=== PATIENT | male | born 1985 | race Native Hawaiian/Other Pacific Islander ===

== ENCOUNTER 2016-12-28 19:53 | Emergency (ER) | payer SELFPAY ==
[2016-12-28] MEDS ORDERED: IPRATROPIUM/ALBUTEROL SULFATE 3 ML AMPUL.NEB NEB ONE (20:06)
[2016-12-28] MEDS ORDERED: BUDESONIDE 0.5MG/2ML AMPUL.NEB NEB ONE (20:13)
[2016-12-28] MEDS ORDERED: ALBUTEROL SULFATE 2.5 MG/3 ML AMPUL.NEB NEB ONE ×2 (20:44→20:55)
[2016-12-28] MEDS ORDERED: SODIUM CHLORIDE 3 ML VIAL.NEB IH ONE (20:44)
[2016-12-28] MEDS ORDERED: BUDESONIDE 0.5MG/2ML AMPUL.NEB NEB SCH (21:00)
[2016-12-28 21:23] LABS: eGFR (African) > 60; eGFR (Non-African) > 60
[2016-12-28 21:26] LABS: BASOPHILS % 0.5 (0.0-1.5); EOSINOPHILS % 15.2 % (0.0-6.8); NEUTROPHILS # 7.2 # k/uL (1.4-7.7)
[2016-12-28] MEDS ORDERED: cefTRIAXone SODIUM ADVANTAGE 1 GM in NORMAL SALINE ADD-VANTAGE 50 ML IV ONE (21:41)
[2016-12-28] MEDS ORDERED: 0.9 % SODIUM CHLORIDE 100 ML IV ONE (21:50)
[2016-12-28] MEDS ORDERED: cefTRIAXone SODIUM 1 GM VIAL ONE (21:50)
--- NOTE | 2016-12-28 21:54 | ED Physician Documentation ---
General Adult - HISTORIAN Historian: patient - HPI Stated Complaint: Difficulty Breathing Chief Complaint: General Adult Additional Information: Wheezing for a week since he moved to [place] from [place]. Duonebs 4-6 times/day , and down to 80 mg prednisone/day fro m110 (for lupus). Intubations 29 times in the past, once o nvent for 3 weeks followed by emergency cric at extubation. Has IVC filter and on coumadin 6.5 mg/day (2/2 lupus) with HX 2 PE's. Steroid dependent, on prednisone since 2007. Cough productive of light green mucus. "Fever" of 99. - ROS CONST: no problems - PAST HX Past History: renal disease (Has been on dialysis i npast.) Other History: other (see above) Surgeries/Procedures: other (see above) Allergies/Adverse Reactions: Allergies Allergy/AdvReac Type Severity Reaction Status Date / Time acetaminophen [From Tylenol] Allergy Verified 12/28/16 20:01 NSAIDS (Non-Steroidal Allergy Verified 12/28/16 20:01 Anti-Inflamma vancomycin Allergy Verified 12/28/16 20:01 Home Medications: Ambulatory Orders Medication Instructions Recorded Albuterol Sulfate [Ventolin] 2.5 mg NEB Q4 12/28/16 Clindamycin HCl [Cleocin] 300 mg PO QID 12/28/16 Warfarin Sodium [Warfarin Sodium] 5 mg PO DAILY 12/28/16 predniSONE [Deltasone] 80 mg PO QD 12/28/16 - SOCIAL HX Smoking History: other (marijuana) Drug Use: marijuana - FAMILY HX Family History: No (no signif) - VITAL SIGNS Vital Signs: Vital Signs Temp Pulse Resp BP Pulse Ox 108 H 30 H 139/83 92 12/28/16 19:55 12/28/16 19:55 12/28/16 19:55 12/28/16 19:55 - REVIEWED ASSESSMENTS Nursing Assessment Reviewed: Yes Vitals Reviewed: Yes Progress - Progress Progress: Examination: PA and lateral chest. History: Shortness of breath Findings: PA lateral chest demonstrate a normal cardiac and mediastinal silhouette. Mild left hilar haziness. No effusion. No blunting of the costophrenic margins. Osseous structures are appropriate for age. Impression: Mild left hilar haziness - possibly representing early infiltrate. Follow as warranted to document resolution. Electronically signed on Dec 28, 2016 8:59:35 PM CDT by: Byron Ya 2140, Spoke with Dr. Renner, [facility], who thinks pt should be in MICU. 2142, spoke with Dr. Lira, who accepts pt for transfer to [facility] MICU ED Results Lab/Radiology - Orders Orders: ED Orders Category Date Time Status Place IV Lock 1T Care 12/28/16 20:37 Ordered CHEST 2 VIEW [CHEST P.A.&LAT 2 VIEWS] [RAD] Stat Exams 12/28/16 Ordered CBC/PLATELET/DIFF Routine Lab 12/28/16 Ordered CMP Routine Lab 12/28/16 Ordered PT-INR Routine Lab 12/28/16 Ordered URINALYSIS Routine Lab 12/28/16 Ordered Budesonide [Pulmicort] Med 12/28/16 21:00 Ordered 0.5 mg NEB BID Ipratropium/Albuterol Sulfate [Duoneb] Med 12/28/16 20:06 Discontinued 3 ml NEB NOW ONE General Adult Physical Exam - PHYSICAL EXAM GENERAL APPEARANCE: moderate distress (unable to speak more than 1-2 words at a time in hoarse voice on arrival.) EENT: eye inspection normal, pharynx normal NECK: normal inspection, supple RESPIRATORY: breath sounds normal (decreased), wheezes, other (speaks iin raspy voice, 1-2 words at a time, tachypneic at 30, supraclavicular retractiosn at times) CVS: reg rate & rhythm, no murmur RECTAL: deferred BACK: normal inspection, no CVA tenderness SKIN: warm/dry, normal color EXTREMITIES: no evidence of injury NEURO: CN's nml as tested, motor nml, sensation nml, cognition normal Discharge Clincal Impression: Respiratory distress, Asthma Referrals: Primary Doctor,No [Primary Care Provider] - 2 Days Home Medications: Ambulatory Orders Albuterol Sulfate [Ventolin] 2.5 mg NEB Q4 12/28/16 Clindamycin HCl [Cleocin] 300 mg PO QID 12/28/16 Warfarin Sodium [Warfarin Sodium] 5 mg PO DAILY 12/28/16 predniSONE [Deltasone] 80 mg PO QD 12/28/16 Condition: Fair Disposition: 02 XFER SHT-TRM HOSP Decision to Admit: NO Decision Time: 21:43
[2016-12-28 22:16] VITALS: BP 138/68
--- NOTE | 2016-12-28 23:29 | Diagnostic Imaging Report ---
JUSTYN WALKER~ [facility] [address] [facility] [address] [place] [address]. [id number] ~ ~ ~ ~ Report Submission Date: Dec 28, 2016 8:59:35 PM CDT Patient ~ Study Name: EDMUNDO PATTERSON ~ Date: Dec 28, 2016 8:41:31 PM CDT ~ Modality Type: CR Gender: M ~ Description: CHEST : 86 ~ Institution: [facility] Physician: JUSTYN WALKER ~ ~ ~ ~ Examination: PA and lateral chest. History: Shortness of breath Findings: PA lateral chest demonstrate a normal cardiac and mediastinal silhouette. Mild left hilar haziness. No effusion.~ No blunting of the costophrenic margins.~ Osseous structures are appropriate for age. Impression: Mild left hilar haziness - possibly representing early infiltrate. Follow as warranted to document resolution. ~ Electronically signed on Dec 28, 2016 8:59:35 PM CDT by: Byrno CORNOA
[2016-12-29 06:30] LABS: ABG PH 7.43 (7.35-7.45)
[2016-12-29 08:46] LABS: ANISOCYTOSIS 2+ (NEGATIVE); HYPOCHROMASIA 1+ (NEGATIVE); OVALOCYTES 1+ (NEGATIVE)
== END 2016-12-28 22:15 | disposition short-term general hospital (02) ==
LOC: ED 19:53
DX: J45.901 Unspecified asthma with (acute) exacerbation (principal); R06.02 Shortness of breath
CPT/HCPCS: 36600; 71020; 80053; 82803; 85025; 85610; 87040; J0696; J7626; 96360; 99284

== ENCOUNTER 2017-01-01 20:53 | Inpatient (IN) | payer SELFPAY ==
[2017-01-01] MEDS ORDERED: ONDANSETRON HCL 4 MG TAB.RAPDIS ONE (21:05)
[2017-01-01] MEDS ORDERED: ONDANSETRON HCL 4 MG TAB.RAPDIS PO ONE (21:05)
[2017-01-01] MEDS ORDERED: oxyCODONE/ACETAMINOPHEN 5/325 TABLET PO ONE (22:18)
[2017-01-01] MEDS ORDERED: HYDROmorphone HCL/PF 1 MG/ML DISP.SYRIN ONE (22:21)
[2017-01-01 23:10] LABS: EOSINOPHILS % 17.7 % (0.0-6.8); MEAN CORPUSCULAR VOLUME 66.9 fl (80.0-100.0); MONOCYTES % 7.1 % (0.0-11.0); NEUTROPHILS # 5.9 # k/uL (1.4-7.7)
[2017-01-01 23:15] LABS: eGFR (African) > 60; eGFR (Non-African) > 60
[2017-01-02] MEDS ORDERED: HYDROmorphone HCL/PF 1 MG/ML DISP.SYRIN IVP ONE (00:40)
[2017-01-02] MEDS ORDERED: diphenhydrAMINE HCL 25 MG TABLET PO ONE ×2 (01:20→01:30)
[2017-01-02] MEDS ORDERED: VANCOMYCIN HCL 1 GM VIAL IV ONE (01:47)
[2017-01-02] MEDS ORDERED: 0.9 % SODIUM CHLORIDE 250 ML IV ONE (01:48)
[2017-01-02] MEDS ORDERED: VANCOMYCIN HCL 1.25 GM in 0.9 % SODIUM CHLORIDE 250 ML IV SCH (02:00)
[2017-01-02 02:17] VITALS: BP 139/85
[2017-01-02] MEDS ORDERED: HYDROmorphone HCL 2 MG TABLET PO ONE ×3 (02:22→10:49)
[2017-01-02] MEDS: HYDROmorphone HCL 2 MG TABLET PO PRN ×3 (02:26→10:51)
[2017-01-02 02:59] VITALS: BMI 23.6
[2017-01-02] MEDS ORDERED: ZOLPIDEM TARTRATE 5 MG TABLET PO PRN (03:26)
[2017-01-02] MEDS ORDERED: ZOLPIDEM TARTRATE 5 MG TABLET PO ONE (03:28)
[2017-01-02] MEDS ORDERED: TIOTROPIUM BROMIDE INHALER IH ONE (04:51)
[2017-01-02] MEDS ORDERED: FLUTICASONE/SALMETEROL 250-50 INHALER IH ONE (04:52)
[2017-01-02] MEDS ORDERED: MONTELUKAST SODIUM 10 MG TABLET PO ONE (04:52)
[2017-01-02] MEDS ORDERED: predniSONE 20 MG TABLET PO ONE (04:52)
[2017-01-02] MEDS ORDERED: WARFARIN SODIUM 5 MG TABLET PO ONE (04:52)
--- NOTE | 2017-01-02 05:01 | ED Physician Documentation ---
General Adult - HISTORIAN Historian: patient - HPI Stated Complaint: rash/swelling of arms s/p iv tx Chief Complaint: General Adult Onset: hours Timing: still present Severity: moderate Further Comments: yes (Pt is a 31 yo male with c/o cellulitis of b/l upper extremities after IV tx at [facility] for asthma exacerbation. Pt has a lengthy PMHx including Lupus, asthma/COPD/bronchitis with 29 intubations. Pt has IVC filter and is on coumadin and has hx PE's. Pt takes daily steroids and has renal disease and has been on dialysis in the past. Pt has no breathing issues at this visit, only pain, swelling and erythema of upper extremities. No fever. ) - ROS CONST: no problems EYES/ENT: none CVS/RESP: none GI/: nausea MS/SKIN/LYMPH: other (inflammation of upper extermities s/p IV tx.) - PAST HX Past History: other (Lupus, asthma/COPD/bronchitis with 29 intubations; renal dz , once on dialysis; RA.) Allergies/Adverse Reactions: Allergies Allergy/AdvReac Type Severity Reaction Status Date / Time acetaminophen [From Tylenol] Allergy Verified 01/01/17 22:58 NSAIDS (Non-Steroidal Allergy Verified 01/01/17 22:58 Anti-Inflamma Home Medications: Ambulatory Orders Medication Instructions Recorded Albuterol Sulfate [Ventolin] 2.5 mg NEB Q4 12/28/16 Warfarin Sodium [Warfarin Sodium] 5 mg PO DAILY 12/28/16 predniSONE [Deltasone] 80 mg PO QD 12/28/16 Alendronate Sodium [Fosamax] 70 mg PO WEEK 01/02/17 Budesonide/Formoterol Fumarate 1 inh PO QDAY 01/02/17 [Symbicort 160-4.5 Mcg Inhaler] Cetirizine HCl [Zyrtec] 10 mg PO QDAY 01/02/17 HYDROmorphone HCL [Dilaudid] 2 mg PO Q4 01/02/17 Montelukast Sodium [Singulair] 10 mg PO QDAY 01/02/17 Theophylline Anhydrous 300 mg PO BID 01/02/17 [Theophylline] Tiotropium [place] [Spiriva] 1 inh IH QD 01/02/17 - SOCIAL HX Smoking History: cigarettes (occasional) - FAMILY HX Family History: No (No signif) - VITAL SIGNS Vital Signs: Vital Signs Temp Pulse Resp BP Pulse Ox 138/68 12/28/16 22:15 - REVIEWED ASSESSMENTS Nursing Assessment Reviewed: Yes Vitals Reviewed: Yes Progress - Progress Progress: Zofran 4 mg ODT Dilaudid 1 mg IV x 2 Pt states that he is not allergic to Vancomycin, as previously recorded. Admit to Dr. Kat, cellulitis. General Adult Physical Exam - PHYSICAL EXAM GENERAL APPEARANCE: mild distress EENT: eye inspection normal, pharynx normal NECK: normal inspection, supple RESPIRATORY: no resp distress, chest non-tender, breath sounds normal CVS: reg rate & rhythm, heart sounds normal BACK: normal inspection SKIN: other (tenderness, swelling, erythema of b/l upper extremities L > R, affectin L hand, wrist, forearm; R upper arm.) EXTREMITIES: normal range of motion NEURO: oriented X3, motor nml, sensation nml Discharge Clincal Impression: Cellulitis Qualifiers: Site of cellulitis: extremity Site of cellulitis of extremity: upper extremity Laterality: unspecified laterality Qualified Code(s): L03.119 - Cellulitis of unspecified part of limb Home Medications: Ambulatory Orders Albuterol Sulfate [Ventolin] 2.5 mg NEB Q4 12/28/16 Warfarin Sodium [Warfarin Sodium] 5 mg PO DAILY 12/28/16 predniSONE [Deltasone] 80 mg PO QD 12/28/16 Alendronate Sodium [Fosamax] 70 mg PO WEEK 01/02/17 Budesonide/Formoterol Fumarate [Symbicort 160-4.5 Mcg Inhaler] 1 inh PO QDAY Cetirizine HCl [Zyrtec] 10 mg PO QDAY 01/02/17 HYDROmorphone HCL [Dilaudid] 2 mg PO Q4 01/02/17 Montelukast Sodium [Singulair] 10 mg PO QDAY 01/02/17 Theophylline Anhydrous [Theophylline] 300 mg PO BID 01/02/17 Tiotropium [place] [Spiriva] 1 inh IH QD 01/02/17 Condition: Stable Disposition: ADMITTED INPATIENT Decision to Admit: NO Decision Time: 00:58
[2017-01-02 06:29] LABS: ANISOCYTOSIS 1+ (NEGATIVE); BASOPHILS % 0.7 (0.0-1.5)
[2017-01-02] MEDS ORDERED: predniSONE 20 MG TABLET PO SCH (07:00)
[2017-01-02] MEDS ORDERED: TIOTROPIUM BROMIDE INHALER IH SCH (07:00)
[2017-01-02] MEDS ORDERED: LORATADINE/PSEUDOEPHEDRINE 1 EACH TAB.ER.12H ONE (08:56)
[2017-01-02] MEDS ORDERED: MONTELUKAST SODIUM 10 MG TABLET PO SCH (09:00)
[2017-01-02] MEDS ORDERED: WARFARIN SODIUM 5 MG TABLET PO SCH (09:00)
[2017-01-02] MEDS ORDERED: LORATADINE/PSEUDOEPHEDRINE 1 EACH TAB.ER.12H PO SCH (09:00)
[2017-01-02] MEDS ORDERED: ALBUTEROL SULFATE 2.5 MG/3 ML AMPUL.NEB NEB SCH (09:00)
[2017-01-02] MEDS ORDERED: FLUTICASONE/SALMETEROL 250-50 INHALER IH SCH (09:00)
--- NOTE | 2017-01-02 13:33 | History and Physical Report ---
History of Present Illnes - History of Present Illness Reason for Visit: Swollen arms History of Present Illness: Patient presented to our ER with swollen arms. He was admitted to [facility] 12-28-16 - 12-31-16 (when he snuck out of the hospital) to the MICU with asthma exacerbation. Ended up being treated for CAP with levaquin. PE work up was negative. For 2 days he has been having swollen painful red B arms. He has a complex medical history. He moved here from [place] in early December with family. No insurance. [facility] [place] has set him up to see [facility] in [place] to get discounted care and medications. [facility] [place] also agreed to work with him with all his medical issues to get him the specialist care he needs. He reports that won't help him because he can't get to [place]. While in our ER 12-28-16 the only line access was in his pinkie. He told nursing he would like to get fpc access that he "would not abuse." He ended up pulling out the IV. On this admission the only IV access obtained was in his alicia. Once on the floor, he has also pulled that out. 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 negative: Neck Pain Skin: Rash Neurological: negative: Weakness - Medications/Allergies Allergies/Adverse Reactions: Allergies Allergy/AdvReac Type Severity Reaction Status Date / Time acetaminophen [From Tylenol] Allergy Verified 01/01/17 22:58 NSAIDS (Non-Steroidal Allergy Verified 01/01/17 22:58 Anti-Inflamma Home Medications: Home Medications Alendronate Sodium [Fosamax] 70 mg PO WEEK 01/02/17 Budesonide/Formoterol Fumarate [Symbicort 160-4.5 Mcg Inhaler] 1 inh PO QDAY Cetirizine HCl [Zyrtec] 10 mg PO QDAY 01/02/17 HYDROmorphone HCL [Dilaudid] 2 mg PO Q4 01/02/17 Montelukast Sodium [Singulair] 10 mg PO QDAY 01/02/17 Theophylline Anhydrous [Theophylline] 300 mg PO BID 01/02/17 Tiotropium [place] [Spiriva] 1 inh IH QD 01/02/17 Current Inpatient Medications: Current Inpatient Medications Albuterol Sulfate (Ventolin) 2.5 mg NEB Q4 [facility] Hydromorphone HCl (Dilaudid) 2 mg PO Q4H PRN PRN Reason: PAIN Stop: 01/06/17 23:59 Last Admin: 01/02/17 06:33 Dose: 2 mg Vancomycin HCl 1.25 gm/ Sodium (Chloride) 250 mls @ 250 mls/hr IV QD [facility] Last Admin: 01/02/17 01:47 Dose: 250 mls/hr Loratadine/Pseudoephedrine Sulfate (Claritin-D 12 Hour Tablet) 1 each PO DAILY [facility] Stop: 01/07/17 23:59 Last Admin: 01/02/17 09:00 Dose: 1 each Montelukast Sodium (Singulair) 10 mg PO QDAY [facility] Last Admin: 01/02/17 09:01 Dose: 10 mg Prednisone (Deltasone) 80 mg PO QD [facility] Last Admin: 01/02/17 06:33 Dose: 80 mg Fluticasone/Salmeterol (Advair 250-50 Diskus) 1 each IH DAILY [facility] Stop: 01/07/17 23:59 Last Admin: 01/02/17 09:05 Dose: 1 inh Tiotropium [place] (Spiriva) 1 inh IH QD [facility] Last Admin: 01/02/17 06:37 Dose: 1 inhaler Warfarin Sodium (Coumadin) 5 mg PO DAILY [facility] Last Admin: 01/02/17 09:01 Dose: 5 mg Zolpidem Tartrate (Ambien) 5 mg PO HS PRN PRN Reason: Insomnia Last Admin: 01/02/17 03:31 Dose: 5 mg Exam - Exam Vital Signs: Vital Signs (72 hours) 01/02/17 01/02/17 02:00 02:13 Temperature 97.9 F 96.8 F L Pulse Rate [ 82 82 Right Pulse ox] Respiratory 16 16 Rate Blood Pressure 134/88 139/85 [Right Arm] O2 Sat by Pulse 98 100 Oximetry General: Alert, Oriented to Person, Oriented to Place, Oriented to Time, Cooperative, No acute distress HEENT: Atraumatic, PERRLA, EOMI, Mouth Mucous membr. moist/[place] Neck: Normal Range of Motion Lungs: Clear to auscultation, Normal air movement, Speaks full Sentences Cardiovascular: Regular rate Abdomen: Normal bowel sounds, Soft, No tenderness Integumentary: Cellulitis (L forearm and R upper arm - swollen, erythematous, painful, warm) Extremities: No: No edema Neurological: Normal gait, Normal speech, Strength Equal Bilat Psych/Mental Status: Mental status NL, Mood NL, Appropriate Affect, Intact Judgment Assessment/Plan - Assessment/Plan (1) Lupus Status: Chronic Qualifiers: Systemic lupus erythematosus type: unspecified Systemic lupus erythematosus organ involvement: glomerular disease Qualified Code(s): M32.14 - Glomerular disease in systemic lupus erythematosus (2) Cellulitis Status: Acute Qualifiers: Site of cellulitis: extremity Site of cellulitis of extremity: upper extremity Laterality: unspecified laterality Qualified Code(s): L03.119 - Cellulitis of unspecified part of limb Plan: Secondary to IV sites. Will need vancomycin treatment with pharmacy dosing. Elevate frequently. Consider U/S (3) Asthma Status: Chronic Qualifiers: Asthma severity: mild persistent Asthma complication type: uncomplicated Qualified Code(s): J45.30 - Mild persistent asthma, uncomplicated VTE Assessment - RISK FACTOR SCORE VTE RISK FACTOR SCORES: ACUTE INFECTION OTHER THEN SEPSIS, DOCUMENTED HX OF VTE - RISK VTE MODERATE RISK: SCORE OF 2 (RISK PROXIMAL DVT 2-4%) PROPHYAXIS NEEDED
--- NOTE | 2017-01-02 13:37 | Discharge Summary ---
Discharge Summary - Discharge Sumary History of Present Illness: Patient presented to our ER with swollen arms. He was admitted to [facility] 12-28-16 - 12-31-16 (when he snuck out of the hospital) to the MICU with asthma exacerbation. Ended up being treated for CAP with levaquin. PE work up was negative. For 2 days he has been having swollen painful red B arms. He has a complex medical history. He moved here from [place] in early December with family. No insurance. [facility] [employer] has set him up to see [facility] in [place] to get discounted care and medications. [facility] [place] also agreed to work with him with all his medical issues to get him the specialist care he needs. He reports that won't help him because he can't get to [place]. While in our ER 12-28-16 the only line access was in his pinkie. He told nursing he would like to get prison access that he "would not abuse." He ended up pulling out the IV. On this admission the only IV access obtained was in his alicia. Once on the floor, he has also pulled that out. 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 Condition at Discharge: Stable Home Medications: Ambulatory Orders Medication Instructions Recorded Albuterol Sulfate [Ventolin HFN] 2.5 mg NEB Q4 12/28/16 Warfarin Sodium 5 mg PO DAILY 12/28/16 predniSONE [Deltasone] 80 mg PO QD 12/28/16 Alendronate Sodium [Fosamax] 70 mg PO WEEK 01/02/17 Budesonide/Formoterol Fumarate 1 inh PO QDAY 01/02/17 [Symbicort 160-4.5 Mcg Inhaler] Cetirizine HCl [Zyrtec] 10 mg PO QDAY 01/02/17 HYDROmorphone HCL [Dilaudid] 2 mg PO Q4 01/02/17 Montelukast Sodium [Singulair] 10 mg PO QDAY 01/02/17 Theophylline Anhydrous 300 mg PO BID 01/02/17 [Theophylline] Tiotropium [place] [Spiriva] 1 inh IH QD 01/02/17 Consultations this Visit: None Procedures this Visit: None Allergies/Adverse Reactions: Allergies Allergy/AdvReac Type Severity Reaction Status Date / Time acetaminophen [From Tylenol] Allergy Verified 01/01/17 22:58 NSAIDS (Non-Steroidal Allergy Verified 01/01/17 22:58 Anti-Inflamma Discharge Summary: Patient was admitted for IV vancomycin for cellulitis from hospitalization last week from IV sites after being on IV levaquin. Patient has immocompromised system due to chronic steroids and Lupus. Only one IV site could be obtained and that was in his alicia. This IV site was lost after admission. A new site could not be obtained. Patient was transferred back to [facility] for treatment - including IV access, ID consult. Advised social service consult to get patient on Medicaid. Transferred in stable condition. Hospital Course: Discharge Dx: B UE cellulitis. Lupus. Asthma. h/o DVT. Disposition - Discharge to [facility]
== END 2017-01-02 11:20 | disposition short-term general hospital (02) | DRG 603 ==
LOC: ED 20:53 → SOUTH 01-02 01:49
PROVIDERS: ADMIT Family Medicine; ATTEND Family Medicine
DX: L03.114 Cellulitis of left upper limb (principal); L03.113 Cellulitis of right upper limb; M32.9 Systemic lupus erythematosus, unspecified; J45.909 Unspecified asthma, uncomplicated
CPT/HCPCS: 80053; 85025; A9270; J1170; 99223; 99238; 99284; J3370; J7050; Q0163; S1016

== ENCOUNTER 2017-01-09 08:21 | Emergency (ER) | payer SELFPAY ==
[2017-01-09] MEDS ORDERED: ALBUTEROL SULFATE 2.5 MG/3 ML AMPUL.NEB NEB ONE (08:24)
[2017-01-09] MEDS ORDERED: BUDESONIDE 0.5MG/2ML AMPUL.NEB NEB ONE (08:35)
[2017-01-09] MEDS: methylPREDNISolone SOD SUCC 125 MG/2 ML VIAL IVP ONE (09:00)
[2017-01-09] MEDS: IPRATROPIUM/ALBUTEROL SULFATE 3 ML AMPUL.NEB NEB ONE ×3 (09:04→10:35)
[2017-01-09] MEDS: ALBUTEROL SULFATE 2.5 MG/3 ML AMPUL.NEB NEB ONE (09:10)
[2017-01-09] MEDS ORDERED: MAGNESIUM SULFATE/D5W 200 ML IV ONE (09:11)
[2017-01-09] MEDS: BUDESONIDE 0.5MG/2ML AMPUL.NEB NEB ONE (09:21)
[2017-01-09 09:26] LABS: eGFR (African) > 60; eGFR (Non-African) > 60
[2017-01-09 09:30] LABS: MEAN CORPUSCULAR HEMOGLOBIN 18.7 pg (28.0-34.0); MEAN CORPUSCULAR VOLUME 65.8 fl (80.0-100.0)
[2017-01-09] MEDS ORDERED: diphenhydrAMINE HCL 50 MG/ML VIAL ONE (09:30)
[2017-01-09] MEDS: diphenhydrAMINE HCL 50 MG/ML VIAL IVP ONE ×2 (09:38→10:25)
--- NOTE | 2017-01-09 09:38 | Diagnostic Imaging Report ---
[facility] [address] [facility].[address] [address] Report Submission Date: Jan 09, 2017 9:36:01 AM CDT Patient Study Name: EDMUNDO PATTERSON Date: Jan 09, 2017 9:15:27 AM CDT Modality Type: CR Gender: M Description: CHEST : 87 Institution: [facility] Physician: CARA ORR - ER Examination: PA and lateral chest. History: Evaluate lung apple. Comparison exam: 28 December 2016 Findings: PA lateral chest demonstrate a normal cardiac and mediastinal silhouette. No focal infiltrate. No effusion. No blunting of the costophrenic margins. Osseous structures are appropriate for age. Impression: No acute process. Electronically signed on Jan 09, 2017 9:36:01 AM CDT by: Byron CORONA
[2017-01-09] MEDS: MAGNESIUM SULFATE/D5W 1 GM in PREMIX BAG 1 BAG IV ONE ×2 (09:40→10:30)
[2017-01-09] MEDS ORDERED: LORATADINE 10 MG TABLET PO ONE (10:12)
[2017-01-09] MEDS: LORATADINE 10 MG TABLET PO ONE (10:18)
[2017-01-09] MEDS: HEPARIN SODIUM 5000 UNIT/1 ML IV ONE (10:45)
--- NOTE | 2017-01-09 10:46 | ED Physician Documentation ---
Dyspnea - HISTORIAN Historian: patient - HPI Stated Complaint: asthma attack Chief Complaint: Dyspnea Additional Information: prog dyspnea past 4-5 days pmh asthma copd intubated 29 x and crich x 1. here w/ chest congestion cough occ prod clear mucoid. sleerps sitting up past several nocts no khalida fever Duration: continues in ED, worse Initiating Event: upper respiratory illness (moved here from [place] no intubation since) Severity: moderate Exacerbated By: exertion, coughing Associated Symptoms: chest discomfort, productive cough, other (skin rash) - ROS CONST: no problems EYES/ENT: none GI/: none MS/SKIN/LYMPH: rash - PAST HX Lung Disease: asthma, COPD PE Risk Factors: hx of PE (lt arm--also PE - wears stent w.filter) Surgeries/Procedures: prior intubation (x 29 plus 1 crich) Allergies/Adverse Reactions: Allergies Allergy/AdvReac Type Severity Reaction Status Date / Time acetaminophen [From Tylenol] Allergy Verified 01/01/17 22:58 NSAIDS (Non-Steroidal Allergy Verified 01/01/17 22:58 Anti-Inflamma Home Medications: Ambulatory Orders Medication Instructions Recorded Albuterol Sulfate [Ventolin HFN] 2.5 mg NEB Q4 12/28/16 Warfarin Sodium 5 mg PO DAILY 12/28/16 predniSONE [Deltasone] 80 mg PO QD 12/28/16 Alendronate Sodium [Fosamax] 70 mg PO WEEK 01/02/17 Budesonide/Formoterol Fumarate 1 inh PO QDAY 01/02/17 [Symbicort 160-4.5 Mcg Inhaler] Cetirizine HCl [Zyrtec] 10 mg PO QDAY 01/02/17 HYDROmorphone HCL [Dilaudid] 2 mg PO Q4 01/02/17 Montelukast Sodium [Singulair] 10 mg PO QDAY 01/02/17 Theophylline Anhydrous 300 mg PO BID 01/02/17 [Theophylline] Tiotropium [place] [Spiriva] 1 inh IH QD 01/02/17 - SOCIAL HX Smoking History: non-smoker (x 1 yr) Alcohol Use: none Drug Use: marijuana - FAMILY HX Family History: no significant history - VITAL SIGNS Vital Signs: Vital Signs Temp Pulse Resp BP Pulse Ox 98.7 F 103 H 32 H 130/82 92 01/09/17 08:32 01/09/17 08:32 01/09/17 08:32 01/09/17 08:32 01/09/17 08:32 - REVIEWED ASSESSMENTS Nursing Assessment Reviewed: Yes Vitals Reviewed: Yes ED Results Lab/Radiology - Radiology Radiology Impressions: cxr= no sig acute condition - Orders Orders: ED Orders Category Date Time Status Assess pulse oximetry Q1H Care 01/09/17 08:27 Active CHEST P.A.&LAT 2 VIEWS [RAD] Stat Exams 01/09/17 Ordered ARTERIAL BLOOD GAS Stat Lab 01/09/17 Uncollected CBC/PLATELET/DIFF Routine Lab 01/09/17 09:00 Received CMP Routine Lab 01/09/17 09:00 Received Albuterol Sulfate [Ventolin] Med 01/09/17 08:24 Discontinued 2.5 mg NEB .STK-MED ONE Albuterol Sulfate [Ventolin] Med 01/09/17 08:27 Discontinued 2.5 mg NEB NOW ONE Budesonide [Pulmicort] Med 01/09/17 08:35 Discontinued 0.5 mg NEB .STK-MED ONE Ipratropium/Albuterol Sulfate [Duoneb] Med 01/09/17 08:43 Discontinued 3 ml NEB NOW ONE Ipratropium/Albuterol Sulfate [Duoneb] Med 01/09/17 09:06 Once 3 ml NEB NOW ONE methylPREDNISolone SOD SUCC [Solu-MEDROL] Med 01/09/17 08:50 Discontinued 125 mg IVP NOW ONE Oxygen Daily Oxygen 01/09/17 08:30 Ordered EKG WITH COMPARISON Stat Ther 01/09/17 Ordered Dyspnea Physical Exam - EXAM General Appearance: moderate distress, severe distress EENT: eye inspection normal Neck: nml inspection Respiratory: respiratory distress, prolonged expirations, wheezes, rales, rhonchi CVS: reg. rate & rhythm, no murmur Abdomen: non-tender, no distention Skin: color nml, no rash, skin rash. No: cyanosis, diaphoresis, pallor, ecchymosis Extremities: non-tender, normal range of motion Neuro/Psych: oriented x3, motor nml, sensation nml, mood/affect nml Discharge Clincal Impression: ACUTE ASTHMA COPD EXACERBATED, possible dvt-pulm embolus, all rxn to depo medrol Referrals: Primary Doctor,No [Primary Care Provider] - 2 Days Home Medications: Ambulatory Orders Albuterol Sulfate [Ventolin HFN] 2.5 mg NEB Q4 12/28/16 Warfarin Sodium 5 mg PO DAILY 12/28/16 predniSONE [Deltasone] 80 mg PO QD 12/28/16 Alendronate Sodium [Fosamax] 70 mg PO WEEK 01/02/17 Budesonide/Formoterol Fumarate [Symbicort 160-4.5 Mcg Inhaler] 1 inh PO QDAY Cetirizine HCl [Zyrtec] 10 mg PO QDAY 01/02/17 HYDROmorphone HCL [Dilaudid] 2 mg PO Q4 01/02/17 Montelukast Sodium [Singulair] 10 mg PO QDAY 01/02/17 Theophylline Anhydrous [Theophylline] 300 mg PO BID 01/02/17 Tiotropium [place] [Spiriva] 1 inh IH QD 01/02/17 Comments: consul DR ELIANA ANDRES will tnsf to ED christie eval and tx Condition: Fair Disposition: 02 XFER SHT-TRM HOSP Decision to Admit: [id number] Decision Time: 10:45
[2017-01-09 11:40] VITALS: BP 130/68
[2017-01-10 08:35] LABS: SEGMENTED NEUTROPHILS % 70 % (39-79)
[2017-01-10 08:36] LABS: BASOPHILS % 1 % (0-2); EOSINOPHILS % 4 % (0-7); HYPOCHROMASIA 1+ (NEGATIVE); MONOCYTES % 5 % (0-11)
== END 2017-01-09 11:10 | disposition short-term general hospital (02) ==
LOC: ED 08:21
DX: J44.1 Chronic obstructive pulmonary disease with (acute) exacerbation (principal); I82.409 Acute embolism and thrombosis of unspecified deep veins of unspecified lower extremity; T50.995A Adverse effect of other drugs, medicaments and biological substances, initial encounter; X58.XXXA Exposure to other specified factors, initial encounter; Y93.9 Activity, unspecified; Y99.9 Unspecified external cause status
CPT/HCPCS: 71020; 80053; 85025; 85379; J1200; J1644; J2930; J3475; J7626; 96365; 96374; 96375; 99284; S1016

== ENCOUNTER 2017-01-25 00:31 | Emergency (ER) | payer OTHER ==
--- NOTE | 2017-01-25 00:46 | ED Physician Documentation ---
General Adult - HISTORIAN Historian: patient - HPI Stated Complaint: asthma exacerbation, R flank pain Chief Complaint: General Adult Onset: days ago (2) Timing: still present Severity: moderate Further Comments: yes (Pt is a 31 yo male with hx asthma/COPD/bronchitis as well as Lupus PE's who presents with wheezing and sob. Pt has been taking Neb tx at home q 45 minutes. Pt has been intubated for asthma exacerbations 29 times. 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; hx MRSA; PE.) Allergies/Adverse Reactions: Allergies Allergy/AdvReac Type Severity Reaction Status Date / Time NSAIDS (Non-Steroidal Allergy Severe Anaphylaxis Verified 01/25/17 01:35 Anti-Inflamma acetaminophen [From Tylenol] Allergy Intermediate Hives Verified 01/25/17 01:35 Home Medications: Ambulatory Orders Medication Instructions Recorded Albuterol Sulfate [Ventolin HFN] 2.5 mg NEB Q4 12/28/16 Warfarin Sodium 5 mg PO DAILY 12/28/16 predniSONE [Deltasone] 80 mg PO QD 12/28/16 Alendronate Sodium [Fosamax] 70 mg PO WEEK 01/02/17 Budesonide/Formoterol Fumarate 1 inh PO QDAY 01/02/17 [Symbicort 160-4.5 Mcg Inhaler] Cetirizine HCl [Zyrtec] 10 mg PO QDAY 01/02/17 HYDROmorphone HCL [Dilaudid] 2 mg PO Q4 01/02/17 Montelukast Sodium [Singulair] 10 mg PO QDAY 01/02/17 Theophylline Anhydrous 300 mg PO BID 01/02/17 [Theophylline] Tiotropium [place] [Spiriva] 1 inh IH QD 01/02/17 Hydroxychloroquine Sulfate 200 mg PO D 01/25/17 [Hydroxychloroquine Sulfate] - SOCIAL HX Smoking History: non-smoker Alcohol Use: none Drug Use: marijuana - FAMILY HX Family History: No - VITAL SIGNS Vital Signs: Vital Signs Temp Pulse Resp BP Pulse Ox 130/68 01/09/17 11:38 - REVIEWED ASSESSMENTS Nursing Assessment Reviewed: Yes Vitals Reviewed: Yes Progress - Progress Progress: Duoneb HFN Pulmicort HFN Albuterol HFN improved SpO2 = 94% Urine dipstick - trace leukoesterase; blood - neg. General Adult Physical Exam - PHYSICAL EXAM GENERAL APPEARANCE: moderate distress EENT: eye inspection normal, pharynx normal NECK: normal inspection, supple RESPIRATORY: wheezes CVS: reg rate & rhythm, heart sounds normal ABDOMEN: soft, no organomegaly, normal bowel sounds BACK: normal inspection, no CVA tenderness SKIN: warm/dry, normal color EXTREMITIES: non-tender, normal range of motion, no evidence of injury NEURO: oriented X3, motor nml, sensation nml Discharge Clincal Impression: Respiratory distress Asthma Qualifiers: Asthma severity: unspecified severity Asthma complication type: with acute exacerbation Qualified Code(s): J45.901 - Unspecified asthma with (acute) exacerbation Referrals: Primary Doctor,No [Primary Care Provider] - 2 Days Home Medications: Ambulatory Orders Albuterol Sulfate [Ventolin HFN] 2.5 mg NEB Q4 12/28/16 Warfarin Sodium 5 mg PO DAILY 12/28/16 predniSONE [Deltasone] 80 mg PO QD 12/28/16 Alendronate Sodium [Fosamax] 70 mg PO WEEK 01/02/17 Budesonide/Formoterol Fumarate [Symbicort 160-4.5 Mcg Inhaler] 1 inh PO QDAY Cetirizine HCl [Zyrtec] 10 mg PO QDAY 01/02/17 HYDROmorphone HCL [Dilaudid] 2 mg PO Q4 01/02/17 Montelukast Sodium [Singulair] 10 mg PO QDAY 01/02/17 Theophylline Anhydrous [Theophylline] 300 mg PO BID 01/02/17 Tiotropium [place] [Spiriva] 1 inh IH QD 01/02/17 Hydroxychloroquine Sulfate [Hydroxychloroquine Sulfate] 200 mg PO D 01/25/17 Condition: Fair Disposition: 02 XFER SHT-TRM HOSP Decision to Admit: NO Decision Time: 02:06
[2017-01-25] MEDS: IPRATROPIUM/ALBUTEROL SULFATE 3 ML AMPUL.NEB NEB ONE (00:50)
[2017-01-25] MEDS: BUDESONIDE 0.5MG/2ML AMPUL.NEB NEB STA (00:50)
[2017-01-25] MEDS ORDERED: BUDESONIDE 0.5MG/2ML AMPUL.NEB NEB ONE (00:53)
[2017-01-25] MEDS ORDERED: ALBUTEROL SULFATE 2.5 MG/3 ML AMPUL.NEB NEB ONE (01:30)
[2017-01-25] MEDS: ALBUTEROL SULFATE 2.5 MG/3 ML AMPUL.NEB NEB ONE (01:35)
[2017-01-25 01:39] LABS: MEAN CORPUSCULAR HEMOGLOBIN 18.8 pg (28.0-34.0); MEAN CORPUSCULAR VOLUME 65.1 fl (80.0-100.0); eGFR (African) > 60; eGFR (Non-African) > 60
[2017-01-25] MEDS ORDERED: diphenhydrAMINE HCL 50 MG/ML VIAL ONE (01:40)
[2017-01-25] MEDS: diphenhydrAMINE HCL 50 MG/ML VIAL IVP ONE (01:45)
[2017-01-25 02:41] VITALS: BP 115/90
--- NOTE | 2017-01-25 06:43 | Diagnostic Imaging Report ---
CAMDEN NAVARRETE [facility] [address] [facility] [address] [place] [address]. [id number] Report Submission Date: Jan 25, 2017 1:55:04 AM CDT Patient Study Name: EDMUNDO PATTERSON Date: Jan 25, 2017 1:44:37 AM CDT Modality Type: CR Gender: M Description: CHEST : 86 Institution: [facility] Physician: CAMDEN NAVARRETE Chest, 1 view History: SOB Findings: Comparison is made to exam dated 01/09/2017. The heart size is normal. The lungs are clear. There is no pleural effusion or pneumothorax identified. The osseous structures are normal. Impression: 1. No acute pulmonary disease. Electronically signed on Jan 25, 2017 1:55:04 AM CDT by: Uli CORONA
[2017-01-25 08:48] LABS: BASOPHILS % 0.6 (0.0-1.5); MONOCYTES % 5.6 % (0.0-11.0); NEUTROPHILS # 7.3 # k/uL (1.4-7.7)
== END 2017-01-25 02:29 | disposition short-term general hospital (02) ==
LOC: ED 00:31
DX: R06.00 Dyspnea, unspecified (principal); J45.901 Unspecified asthma with (acute) exacerbation
CPT/HCPCS: 71010; 80053; 85025; 85610; J1200; J7626; 96372; 99284; S1016

== ENCOUNTER 2017-01-27 20:50 | Emergency (ER) | payer OTHER ==
--- NOTE | 2017-01-27 20:56 | ED Physician Documentation ---
General Adult - HISTORIAN Historian: patient - HPI Stated Complaint: "I think I have a clot in my leg" Chief Complaint: General Adult Onset: hours Timing: still present Severity: moderate Further Comments: yes (Pt is a 31 yo male with multiple medical issues, including Lupus, asthma with nurmerous intubations, DVT's, who has a red and swollen L foot and believes he has a DVT. 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; hx MRSA; PE.) Allergies/Adverse Reactions: Allergies Allergy/AdvReac Type Severity Reaction Status Date / Time NSAIDS (Non-Steroidal Allergy Severe Anaphylaxis Verified 01/27/17 22:23 Anti-Inflamma acetaminophen [From Tylenol] Allergy Intermediate Hives Verified 01/27/17 22:23 Home Medications: Ambulatory Orders Medication Instructions Recorded Albuterol Sulfate [Ventolin HFN] 2.5 mg NEB Q4 12/28/16 Warfarin Sodium 5 mg PO DAILY 12/28/16 predniSONE [Deltasone] 80 mg PO QD 12/28/16 Alendronate Sodium [Fosamax] 70 mg PO WEEK 01/02/17 Budesonide/Formoterol Fumarate 1 inh PO QDAY 01/02/17 [Symbicort 160-4.5 Mcg Inhaler] Cetirizine HCl [Zyrtec] 10 mg PO QDAY 01/02/17 HYDROmorphone HCL [Dilaudid] 2 mg PO Q4 01/02/17 Montelukast Sodium [Singulair] 10 mg PO QDAY 01/02/17 Theophylline Anhydrous 300 mg PO BID 01/02/17 [Theophylline] Tiotropium [place] [Spiriva] 1 inh IH QD 01/02/17 Hydroxychloroquine Sulfate 200 mg PO D 01/25/17 [Hydroxychloroquine Sulfate] Doxycycline Monohydrate 100 mg PO Q12H #20 tablet 01/27/17 - SOCIAL HX Smoking History: non-smoker Drug Use: marijuana - FAMILY HX Family History: No - VITAL SIGNS Vital Signs: Vital Signs Temp Pulse Resp BP Pulse Ox 115/90 01/25/17 02:37 - REVIEWED ASSESSMENTS Nursing Assessment Reviewed: Yes Vitals Reviewed: Yes Progress - Progress Progress: Pt is no longer on coumadin, but is on Xarelto. Rx Doxycycline 100 mg. Take one by mouth every 12 hrs for 10 days. Avoid prolonged sun exposure while taking Doxycycline. Return to ER if sx worsen or are unimproved in 24 to 48 hrs. General Adult Physical Exam - PHYSICAL EXAM GENERAL APPEARANCE: mild distress EENT: pharynx normal NECK: normal inspection, supple RESPIRATORY: no resp distress, chest non-tender, breath sounds normal CVS: reg rate & rhythm, heart sounds normal ABDOMEN: soft, no organomegaly, normal bowel sounds BACK: normal inspection, no CVA tenderness SKIN: other (redness, tenderness, increased warmth R ankle) EXTREMITIES: normal range of motion, other (redness, tenderness, increased warmth R ankle) NEURO: oriented X3, motor nml, sensation nml Discharge Clincal Impression: Cellulitis R ankle Prescriptions: Doxycycline Monohydrate 100 mg PO Q12H #20 tablet Referrals: Primary Doctor,No [Primary Care Provider] - Home Medications: Ambulatory Orders Albuterol Sulfate [Ventolin HFN] 2.5 mg NEB Q4 12/28/16 Warfarin Sodium 5 mg PO DAILY 12/28/16 predniSONE [Deltasone] 80 mg PO QD 12/28/16 Alendronate Sodium [Fosamax] 70 mg PO WEEK 01/02/17 Budesonide/Formoterol Fumarate [Symbicort 160-4.5 Mcg Inhaler] 1 inh PO QDAY Cetirizine HCl [Zyrtec] 10 mg PO QDAY 01/02/17 HYDROmorphone HCL [Dilaudid] 2 mg PO Q4 01/02/17 Montelukast Sodium [Singulair] 10 mg PO QDAY 01/02/17 Theophylline Anhydrous [Theophylline] 300 mg PO BID 01/02/17 Tiotropium [place] [Spiriva] 1 inh IH QD 01/02/17 Hydroxychloroquine Sulfate [Hydroxychloroquine Sulfate] 200 mg PO D 01/25/17 Doxycycline Monohydrate 100 mg PO Q12H #20 tablet 01/27/17 Condition: Stable Disposition: 01 HOME, SELF-CARE Decision to Admit: NO Decision Time: 23:22
[2017-01-27 22:33] LABS: BASOPHILS % 0.6 (0.0-1.5); EOSINOPHILS % 5.9 % (0.0-6.8); MEAN CORPUSCULAR HEMOGLOBIN 18.8 pg (28.0-34.0); MEAN CORPUSCULAR VOLUME 65.3 fl (80.0-100.0); MONOCYTES % 5.1 % (0.0-11.0); NEUTROPHILS # 7.4 # k/uL (1.4-7.7)
[2017-01-27 22:41] VITALS: BP 116/81
[2017-01-27 22:42] LABS: eGFR (African) > 60; eGFR (Non-African) > 60
[2017-01-27] MEDS ORDERED: DOXYCYCLINE MONOHYDRATE 100 MG CAPSULE PO ONE (23:14)
== END 2017-01-27 23:32 | disposition home or self-care (01) ==
LOC: ED 20:50
DX: L03.115 Cellulitis of right lower limb (principal)
CPT/HCPCS: 80053; 85025; 85379; 85610; 85730; 99283; S1016

== ENCOUNTER 2017-03-14 19:11 | Emergency (ER) | payer OTHER ==
[2017-03-14] MEDS ORDERED: methylPREDNISolone SOD SUCC 125 MG/2 ML VIAL ONE (19:12)
[2017-03-14] MEDS: IPRATROPIUM/ALBUTEROL SULFATE 3 ML AMPUL.NEB NEB STA (19:15)
[2017-03-14] MEDS ORDERED: ALBUTEROL SULFATE 2.5 MG/0.5 ML AMPUL.NEB NEB ONE (19:17)
[2017-03-14] MEDS ORDERED: ONDANSETRON HCL/PF 4 MG/ 2ML VIAL ONE (19:29)
[2017-03-14] MEDS: methylPREDNISolone SOD SUCC 125 MG/2 ML VIAL IVP ONE (19:30)
[2017-03-14] MEDS: ONDANSETRON HCL/PF 4 MG/ 2ML VIAL IVP ONE (19:35)
[2017-03-14 19:40] LABS: BASOPHILS % 0.3 (0.0-1.5); EOSINOPHILS % 1.7 % (0.0-6.8); MEAN CORPUSCULAR HEMOGLOBIN 19.1 pg (28.0-34.0); MONOCYTES % 4.6 % (0.0-11.0); NEUTROPHILS # 11.1 # k/uL (1.4-7.7)
[2017-03-14] MEDS ORDERED: diphenhydrAMINE HCL 50 MG/ML VIAL ONE (19:44)
[2017-03-14] MEDS: ALBUTEROL SULFATE 2.5 MG/3 ML AMPUL.NEB NEB ONE (19:45)
[2017-03-14] MEDS: diphenhydrAMINE HCL 50 MG/ML VIAL IVP ONE (19:49)
[2017-03-14 19:53] LABS: eGFR (African) > 60; eGFR (Non-African) > 60
[2017-03-14] MEDS: MORPHINE SULFATE 4 MG/ML DISP.SYRIN IVP ONE (19:58)
[2017-03-14] MEDS ORDERED: BUDESONIDE 0.5MG/2ML AMPUL.NEB NEB ONE (20:16)
--- NOTE | 2017-03-14 20:26 | ED Physician Documentation ---
Dyspnea - HISTORIAN Historian: patient - HPI Stated Complaint: short of breath Chief Complaint: Wheezing Onset: days ago (7) Duration: continues in ED Initiating Event: upper respiratory illness, out of meds (out of coumadin 3 days , out of plaquinil 7 days) Severity: severe Exacerbated By: change in position, exertion, laying flat, coughing Associated Symptoms: chills, fever, chest discomfort Further Comments: yes (31 year old male patient presents in respiratory distress. RR 36-40, audible wheezing, labored respirations. Patient able to speak in 3-4 word sentences.) - ROS CONST: recent illness (Intubated January 2017) EYES/ENT: nasal drainage, nasal congestion GI/: none NEURO/PSYCH: denies: headache MS/SKIN/LYMPH: none - PAST HX Lung Disease: asthma, COPD, other (Intubated 30 times, trach) Cardiac Disease: other ([place], Mitral valve insufficiency; SVT s/p ablation, ) PE Risk Factors: hypertension, hx DVT, hx of PE Other History: diabetes Type 2, other (Alpha Thalasemia, Hx MRSA) Allergies/Adverse Reactions: Allergies Allergy/AdvReac Type Severity Reaction Status Date / Time NSAIDS (Non-Steroidal Allergy Severe Anaphylaxis Verified 01/27/17 22:23 Anti-Inflamma acetaminophen [From Tylenol] Allergy Intermediate Hives Verified 01/27/17 22:23 Home Medications: Ambulatory Orders Medication Instructions Recorded Albuterol Sulfate [Ventolin HFN] 2.5 mg NEB Q4 12/28/16 Warfarin Sodium 5 mg PO DAILY 12/28/16 predniSONE [Deltasone] 80 mg PO QD 12/28/16 Alendronate Sodium [Fosamax] 70 mg PO WEEK 01/02/17 Budesonide/Formoterol Fumarate 1 inh PO QDAY 01/02/17 [Symbicort 160-4.5 Mcg Inhaler] Cetirizine HCl [Zyrtec] 10 mg PO QDAY 01/02/17 HYDROmorphone HCL [Dilaudid] 2 mg PO Q4 01/02/17 Montelukast Sodium [Singulair] 10 mg PO QDAY 01/02/17 Theophylline Anhydrous 300 mg PO BID 01/02/17 [Theophylline] Tiotropium [place] [Spiriva] 1 inh IH QD 01/02/17 Hydroxychloroquine Sulfate 200 mg PO D 01/25/17 [Hydroxychloroquine Sulfate] Doxycycline Monohydrate 100 mg PO Q12H #20 tablet 01/27/17 - SOCIAL HX Smoking History: cigarettes - FAMILY HX Family History: denies: none - VITAL SIGNS Vital Signs: Vital Signs Temp Pulse Resp BP Pulse Ox 112 H 36 H 138/88 97 03/14/17 19:12 03/14/17 19:12 03/14/17 19:12 03/14/17 19:12 - REVIEWED ASSESSMENTS Nursing Assessment Reviewed: Yes Vitals Reviewed: Yes Progress - Progress Progress: BBS course with inspiratory and expiratory wheezing. Duoneb started. Patient extremely difficult IV start. 22G to left chest. Solumedrol IV given. Patient reports nausea with solumedrol. Duoneb followed by albuterol. RR down to 24-28, work of breathing improving. 1999 Patient significantly improved, RR 22-24; O2 remains at 4L Sat 95-97%; C/O Left lower chest wall pain. Medicated with morphine IV. 2014 Call to [facility], case discussed with Dr Duncan - orders for ABG and drug screen. 2030 ph 7.43, Co2 42, pO2 219, HCO3 27.9, Sat 100% Patient now reports being out of Coumadin x 3 days, out of plaquinil x 7 days. - EKG/XRAY/CT XRAY: chest (possible early RLL pneumonia vs scarring. No change from January 25, 2017 chest xray) ED Results Lab/Radiology - Lab Results Lab Results: Lab Results 03/14/17 03/14/17 03/14/17 19:35 19:33 19:33 WBC 13.60 K/ul H K/ul (4.00-12.00) RBC 6.38 M/ul H M/ul (3.90-5.20) Hgb 12.2 g/dL g/dL (12.0-18.0) Hct 43.4 % % (37.0-53.0) MCV 68.0 fl L fl (80.0-100.0) MCH 19.1 pg L pg (28.0-34.0) MCHC 28.2 g/dL L g/dL (30.0-36.0) RDW 18.9 % H % (11.3-14.3) Plt Count 149 K/mm3 K/mm3 (130-400) Neut % (Auto) 81.1 % H % (39.0-79.0) Lymph % (Auto) 10.3 % L % (16.0-50.0) Chambers % (Auto) 4.6 % % (0.0-11.0) Eos % (Auto) 1.7 % % (0.0-6.8) Baso % (Auto) 0.3 (0.0-1.5) Neut # (Auto) 11.1 # k/uL H # k/uL (1.4-7.7) Lymph # (Auto) 1.4 # k/uL # k/uL (0.6-4.0) Chambers # (Auto) 0.6 # k/uL # k/uL (0.0-0.9) Eos # (Auto) 0.2 # k/uL # k/uL (0.0-0.6) Baso # (Auto) 0.0 # k/uL # k/uL (0.0-0.5) Reactive Lymphs % 1.8 % % (0.0-5.0) Reactive Lymphs # 0.2 # k/uL # k/uL (0.0-0.8) PT 10.5 Seconds Seconds (9.4-11.6) INR 1.00 (0.9-1.2) Sodium 140 mmol/L mmol/L (136-145) Potassium 3.8 mmol/L mmol/L (3.5-5.0) Chloride 105 mmol/L mmol/L (98-110) Carbon Dioxide 24 mmol/L mmol/L (20-32) BUN 14 mg/dL mg/dL (10-26) Creatinine 1.0 mg/dL mg/dL (0.4-1.5) Est GFR ( Amer) > 60 (60 - ) Est GFR (Non-Af Amer) > 60 (60 - ) Glucose 151 mg/dL H mg/dL (70-99) Calcium 9.8 mg/dL mg/dL (8.5-10.5) Total Bilirubin 0.7 mg/dL mg/dL (0.2-1.2) AST 28 U/L U/L (0-41) ALT 25 U/L U/L (0-45) Alkaline Phosphatase 60 U/L U/L (46-116) Total Protein 7.1 g/dL g/dL (6.0-8.5) Albumin 4.7 g/dL g/dL (3.0-5.5) - Orders Orders: ED Orders Category Date Time Status Arterial Blood Gas 1T Care 03/14/17 20:15 Ordered CHEST 1 VIEW [RAD] Stat Exams 03/14/17 Taken CBC/PLATELET/DIFF Stat Lab 03/14/17 19:33 Completed CMP Stat Lab 03/14/17 19:33 Completed DRUG SCREEN URINE MEDICAL ONLY Stat Lab 03/14/17 Ordered PT [PT-INR] Stat Lab 03/14/17 19:35 Completed RBC/PLATELET MORPHOLOGY Stat Lab 03/14/17 19:33 Completed Albuterol Sulfate Med 03/14/17 19:17 Discontinued 2.5 mg NEB .STK-MED ONE Albuterol Sulfate [Ventolin] Med 03/14/17 19:35 Discontinued 2.5 mg NEB NOW ONE Budesonide [Pulmicort] Med 03/14/17 21:00 Ordered 0.5 mg NEB BID Ipratropium/Albuterol Sulfate [Duoneb] Med 03/14/17 19:13 Discontinued 3 ml NEB STAT STA Morphine Sulfate [DepoDUR] Med 03/14/17 19:51 Discontinued 4 mg IVP NOW ONE Ondansetron HCl/Pf [Zofran 4 mg/2 ml] Med 03/14/17 19:29 Discontinued 4 mg .ROUTE .STK-MED ONE diphenhydrAMINE HCL [Benadryl] Med 03/14/17 19:44 Discontinued 25 mg IVP NOW ONE diphenhydrAMINE HCL [Benadryl] Med 03/14/17 19:44 Discontinued 50 mg .ROUTE .STK-MED ONE methylPREDNISolone SOD SUCC [Solu-MEDROL] Med 03/14/17 19:12 Discontinued 125 mg .ROUTE .STK-MED ONE methylPREDNISolone SOD SUCC [Solu-MEDROL] Med 03/14/17 19:13 Discontinued 125 mg IVP NOW ONE Dyspnea Physical Exam - EXAM General Appearance: severe distress EENT: eye inspection normal, ENT inspection normal, pharynx normal, no signs of dehydration, PRAFUL, no nystagmus, TM's nml Respiratory: respiratory distress, retractions, accessory muscle use, decreased air movement, wheezes CVS: no gallop, no friction rub, pulses full, pulses equal, tachycardia, murmur (mitral regurg) Abdomen: non-tender, no organomegaly, no distention, no ascites Skin: color nml, no rash, warm, nml palp., dry Extremities: non-tender, normal range of motion, no evidence of injury, no edema , J, [employer] Neuro/Psych: oriented x3, CN's nml as tested, motor nml, sensation nml, mood/ affect nml Discharge Clincal Impression: Respiratory distress, COPD exacerbation, Wheezing, Lupus, Leukocytosis Referrals: Primary Doctor,No [Primary Care Provider] - 2 Days Home Medications: Ambulatory Orders Albuterol Sulfate [Ventolin HFN] 2.5 mg NEB Q4 12/28/16 Warfarin Sodium 5 mg PO DAILY 12/28/16 predniSONE [Deltasone] 80 mg PO QD 12/28/16 Alendronate Sodium [Fosamax] 70 mg PO WEEK 01/02/17 Budesonide/Formoterol Fumarate [Symbicort 160-4.5 Mcg Inhaler] 1 inh PO QDAY Cetirizine HCl [Zyrtec] 10 mg PO QDAY 01/02/17 HYDROmorphone HCL [Dilaudid] 2 mg PO Q4 01/02/17 Montelukast Sodium [Singulair] 10 mg PO QDAY 01/02/17 Theophylline Anhydrous [Theophylline] 300 mg PO BID 01/02/17 Tiotropium [place] [Spiriva] 1 inh IH QD 01/02/17 Hydroxychloroquine Sulfate [Hydroxychloroquine Sulfate] 200 mg PO D 01/25/17 Doxycycline Monohydrate 100 mg PO Q12H #20 tablet 01/27/17 Condition: Stable Disposition: 02 XFER SHT-TRM HOSP Decision to Admit: NO Decision Time: 20:39
[2017-03-14] MEDS: BUDESONIDE 0.5MG/2ML AMPUL.NEB NEB SCH (20:29)
--- NOTE | 2017-03-14 20:56 | Diagnostic Imaging Report ---
DREW BALLESTEROS (RIA) - ER~ [facility] [address] [facility].[address] [address] ~ ~ ~ ~ Report Submission Date: Mar 14, 2017 7:56:16 PM CDT Patient ~ Study Name: EDMUNDO PATTERSON ~ Date: Mar 14, 2017 7:39:06 PM CDT ~ Modality Type: CR Gender: M ~ Description: CHEST : 87 ~ Institution: [facility] Physician: DREW JO (RIA) - ER ~ ~ ~ ~ Examination: Portable chest History: Chest discomfort Comparison exam: 25 January 2017 Findings: Single view of the chest demonstrates a normal cardiac and mediastinal silhouette. Lung apple without focal infiltrate. No effusion. Osseous structures are appropriate for age. Impression: No acute pulmonary process. ~ Electronically signed on Mar 14, 2017 7:56:16 PM CDT by: Byron CORONA
[2017-03-14 21:40] VITALS: BP 127/77
[2017-03-15 12:01] LABS: ABG BASE EXCESS 3.2 (-2 - +2); ABG PH 7.43 (7.35-7.45)
== END 2017-03-14 21:37 | disposition short-term general hospital (02) ==
LOC: ED 19:11
DX: J80 Acute respiratory distress syndrome (principal); J44.1 Chronic obstructive pulmonary disease with (acute) exacerbation; R06.2 Wheezing; M32.14 Glomerular disease in systemic lupus erythematosus; D72.829 Elevated white blood cell count, unspecified
CPT/HCPCS: 36600; 71010; 80053; 82803; 85025; 85610; J1200; J2270; J2405; J2930; J7626; 96374; 96375; 99284; S1016

== ENCOUNTER 2017-03-18 22:25 | Emergency (ER) | payer OTHER ==
[2017-03-18] MEDS ORDERED: IPRATROPIUM/ALBUTEROL SULFATE 3 ML AMPUL.NEB NEB ONE ×2 (22:30→22:33)
[2017-03-18] MEDS ORDERED: DEXAMETHASONE SOD PHOS 4 MG/ML VIAL NEB ONE (22:30)
[2017-03-18] MEDS ORDERED: DEXAMETHASONE SOD PHOS 4 MG/ML VIAL ONE (22:36)
--- NOTE | 2017-03-18 23:12 | ED Physician Documentation ---
Asthma - HISTORIAN Historian: patient - HPI Stated Complaint: SOA Chief Complaint: Asthma Additional Information: x1 week. has been here and [facility]. long chronic breathing trouble Onset: other (years) Duration: continues in ED Initiating Event: environmental allergy Associated Symptoms:: trouble breathing, shortness of breath. denies: fever, sweating Current Asthma Therapy: inhaled nebulizer, inhaled MDI, albuterol inhaler, albuterol nebulizer, steroid, ipratropium, prednisone Further Comments: no - ROS CONST: no problems EYES/ENT: denies: eye redness CVS: denies: heart racing GI/: none MS/SKIN/LYMPH: denies: ankle swelling NEURO/PSYCH: denies: headache - PAST HX Asthma: frequent attacks, previously intubated (32 times) Lung Disease: asthma, COPD DVT/PE Risk Factors: none Other History: denies: cardiac disease Surgeries/Procedures: denies: none Allergies/Adverse Reactions: Allergies Allergy/AdvReac Type Severity Reaction Status Date / Time NSAIDS (Non-Steroidal Allergy Severe Anaphylaxis Verified 03/18/17 22:48 Anti-Inflamma acetaminophen [From Tylenol] Allergy Intermediate Hives Verified 03/18/17 22:48 vancomycin HCl Allergy Intermediate Hives Verified 03/18/17 22:47 [From Vancocin] Home Medications: Ambulatory Orders Medication Instructions Recorded Albuterol Sulfate [Ventolin HFN] 2.5 mg NEB Q4 12/28/16 Warfarin Sodium 5 mg PO DAILY 12/28/16 predniSONE [Deltasone] 80 mg PO QD 12/28/16 Alendronate Sodium [Fosamax] 70 mg PO WEEK 01/02/17 Budesonide/Formoterol Fumarate 1 inh PO QDAY 01/02/17 [Symbicort 160-4.5 Mcg Inhaler] Cetirizine HCl [Zyrtec] 10 mg PO QDAY 01/02/17 HYDROmorphone HCL [Dilaudid] 2 mg PO Q4 01/02/17 Montelukast Sodium [Singulair] 10 mg PO QDAY 01/02/17 Theophylline Anhydrous 300 mg PO BID 01/02/17 [Theophylline] Tiotropium [place] [Spiriva] 1 inh IH QD 01/02/17 Hydroxychloroquine Sulfate 200 mg PO D 01/25/17 [Hydroxychloroquine Sulfate] - SOCIAL HX Smoking History: non-smoker Alcohol Use: none Drug Use: none - FAMILY HX Family History: denies: emphysema - VITAL SIGNS Vital Signs: Vital Signs Temp Pulse Resp BP Pulse Ox 97.3 F L 99 H 20 114/62 97 03/18/17 22:25 03/18/17 22:25 03/18/17 22:25 03/18/17 22:25 03/18/17 22:25 - REVIEWED ASSESSMENTS Nursing Assessment Reviewed: Yes Vitals Reviewed: Yes Progress - Results/Orders Results/Orders: improved with aerosol, O2 sats remain good. ED Results Lab/Radiology - Orders Orders: ED Orders Category Date Time Status Dexamethasone Sod Phosphate [Decadron] Med 03/18/17 22:36 Discontinued 4 mg .ROUTE .STK-MED ONE Dexamethasone Sod Phosphate [Decadron] Med 03/18/17 22:30 Once 4 mg NEB NOW ONE Ipratropium/Albuterol Sulfate [Duoneb] Med 03/18/17 22:33 Discontinued 3 ml NEB .STK-MED ONE Ipratropium/Albuterol Sulfate [Duoneb] Med 03/18/17 22:30 Once 3 ml NEB NOW ONE Asthma Physical Exam - EXAM General Appearance: no acute distress, alert EENT: ENT inspection normal, pharynx normal, no signs of dehydration Neck: nml inspection Respiratory: no resp. distress, speaks full sentences, wheezes CVS: reg rate & rhythm, heart sounds normal Abdomen: non-tender Skin: color nml, no rash Extremities: non-tender Neuro/Psych: oriented x3 Discharge Clincal Impression: COPD exacerbation, Cough, Environmental allergies Asthma Qualifiers: Asthma severity: severe persistent Asthma complication type: with acute exacerbation Qualified Code(s): J45.51 - Severe persistent asthma with (acute) exacerbation Lupus Qualifiers: Systemic lupus erythematosus type: unspecified Systemic lupus erythematosus organ involvement: unspecified Qualified Code(s): M32.9 - Systemic lupus erythematosus, unspecified Referrals: Primary Doctor,No [Primary Care Provider] - 2 Days Home Medications: Ambulatory Orders Albuterol Sulfate [Ventolin HFN] 2.5 mg NEB Q4 12/28/16 Warfarin Sodium 5 mg PO DAILY 12/28/16 predniSONE [Deltasone] 80 mg PO QD 12/28/16 Alendronate Sodium [Fosamax] 70 mg PO WEEK 01/02/17 Budesonide/Formoterol Fumarate [Symbicort 160-4.5 Mcg Inhaler] 1 inh PO QDAY Cetirizine HCl [Zyrtec] 10 mg PO QDAY 01/02/17 HYDROmorphone HCL [Dilaudid] 2 mg PO Q4 01/02/17 Montelukast Sodium [Singulair] 10 mg PO QDAY 01/02/17 Theophylline Anhydrous [Theophylline] 300 mg PO BID 01/02/17 Tiotropium [place] [Spiriva] 1 inh IH QD 01/02/17 Hydroxychloroquine Sulfate [Hydroxychloroquine Sulfate] 200 mg PO D 01/25/17 Condition: Stable Disposition: 01 HOME, SELF-CARE Decision to Admit: NO Date of Decison to Admit: 03/18/17 Decision Time: 23:14
[2017-03-18] MEDS ORDERED: BENZONATATE 100 MG CAPSULE PO ONE (23:14)
[2017-03-18 23:25] VITALS: BP 113/86
== END 2017-03-18 23:23 | disposition home or self-care (01) ==
LOC: ED 22:25
DX: J44.1 Chronic obstructive pulmonary disease with (acute) exacerbation (principal); J30.89 Other allergic rhinitis; R05 Cough; J45.51 Severe persistent asthma with (acute) exacerbation; M32.9 Systemic lupus erythematosus, unspecified
CPT/HCPCS: A9270; J1100; 99283

== ENCOUNTER 2017-03-26 11:22 | Emergency (ER) | payer OTHER ==
--- NOTE | 2017-03-26 11:26 | ED Physician Documentation ---
General Adult - HISTORIAN Historian: patient - HPI Stated Complaint: R arm swelling Chief Complaint: General Adult Onset: days ago Timing: still present Severity: moderate Further Comments: yes (Pt is a 31 yo male with c/o inflammation & swelling of his R upper extremity, following removal of an IV mid line, placed due to a Lupus flair up. Pt has mutiple medical issues, in addition to Lupus, including asthma (with 29 intubations), COPD, bronchitis, and renal dz for which he has been on dialysis in the past. Pt has hx multiple episodes of DVT's and PE's and has had an IVC filter and been on coumadin. Pt was seen in [place] last week, where he had been given the IV line. The line is no longer in place , but pt has inflammation and swelling of his R upper extremity, which he believes is another DVT. Pt takes daily steroids.) - ROS CONST: other (malaise) EYES/ENT: none CVS/RESP: none GI/: none MS/SKIN/LYMPH: other (R upper extremity inflammation and swellig) - PAST HX Past History: other (Lupus, COPD, bronchitis, asthma (with approx 30 intubations ), renal dz with hx dialysis, multiple DVT's/PE, with IVC filter placed.) Allergies/Adverse Reactions: Allergies Allergy/AdvReac Type Severity Reaction Status Date / Time NSAIDS (Non-Steroidal Allergy Severe Anaphylaxis Verified 03/26/17 11:53 Anti-Inflamma acetaminophen [From Tylenol] Allergy Intermediate Hives Verified 03/26/17 11:53 vancomycin HCl Allergy Intermediate Hives Verified 03/26/17 11:53 [From Vancocin] Home Medications: Ambulatory Orders Medication Instructions Recorded Albuterol Sulfate [Ventolin HFN] 2.5 mg NEB Q4 12/28/16 Warfarin Sodium 5 mg PO DAILY 12/28/16 predniSONE [Deltasone] 80 mg PO QD 12/28/16 Alendronate Sodium [Fosamax] 70 mg PO WEEK 01/02/17 Budesonide/Formoterol Fumarate 1 inh PO QDAY 01/02/17 [Symbicort 160-4.5 Mcg Inhaler] Cetirizine HCl [Zyrtec] 10 mg PO QDAY 01/02/17 HYDROmorphone HCL [Dilaudid] 2 mg PO Q4 06/25/17 Montelukast Sodium [Singulair] 10 mg PO QDAY 01/02/17 Theophylline Anhydrous 300 mg PO BID 01/02/17 [Theophylline] Tiotropium [place] [Spiriva] 1 inh IH QD 01/02/17 Hydroxychloroquine Sulfate 200 mg PO D 01/25/17 [Hydroxychloroquine Sulfate] - SOCIAL HX Smoking History: non-smoker - FAMILY HX Family History: No - VITAL SIGNS Vital Signs: Vital Signs Temp Pulse Resp BP Pulse Ox 113/86 03/18/17 23:23 - REVIEWED ASSESSMENTS Nursing Assessment Reviewed: Yes Vitals Reviewed: Yes Progress - Progress Progress: Benadryl 25 mg IV for pruritis Dilaudid 1 mg IV elevated D-dimer Transfer to [facility]. Dr. Weiss, possible DVT. General Adult Physical Exam - PHYSICAL EXAM GENERAL APPEARANCE: moderate distress EENT: pharynx normal NECK: normal inspection, supple RESPIRATORY: no resp distress, chest non-tender, breath sounds normal CVS: reg rate & rhythm, heart sounds normal ABDOMEN: soft, no organomegaly, normal bowel sounds BACK: normal inspection, no CVA tenderness SKIN: other (inflammation of R upper extermity, with redness, warmth, swelling, proximal to antecubital fossa) EXTREMITIES: other (inflammation of R upper extermity, with redness, warmth, swelling, proximal to antecubital fossa) NEURO: oriented X3, motor nml, sensation nml Discharge Clincal Impression: elevated D-dimer, Suspicion of DVT Referrals: Primary Doctor,No [Primary Care Provider] - Condition: Stable Disposition: 02 XFER SHT-TRM HOSP Decision to Admit: NO Decision Time: 13:39
[2017-03-26] MEDS ORDERED: diphenhydrAMINE HCL 50 MG/ML VIAL ONE (12:36)
[2017-03-26] MEDS ORDERED: diphenhydrAMINE HCL 50 MG/ML VIAL IVP ONE (12:48)
[2017-03-26 12:53] LABS: eGFR (African) > 60; eGFR (Non-African) > 60
[2017-03-26 12:57] LABS: MEAN CORPUSCULAR HEMOGLOBIN 19.1 pg (28.0-34.0); MEAN CORPUSCULAR VOLUME 63.2 fl (80.0-100.0)
[2017-03-26] MEDS ORDERED: HYDROmorphone HCL/PF 1 MG/ML DISP.SYRIN IVP ONE (13:18)
[2017-03-26 14:34] VITALS: BP 126/78
[2017-03-27 05:51] LABS: EOSINOPHILS % 6 % (0-7); MONOCYTES % 5 % (0-11); SEGMENTED NEUTROPHILS % 66 % (39-79)
[2017-03-27 05:52] LABS: ANISOCYTOSIS 1+ (NEGATIVE)
== END 2017-03-26 14:10 | disposition short-term general hospital (02) ==
LOC: ED 11:22
DX: M79.89 Other specified soft tissue disorders (principal); R94.8 Abnormal results of function studies of other organs and systems
CPT/HCPCS: 80053; 85025; 85379; 87040; J1170; J1200; 96374; 96375; 99284; S1016

== ENCOUNTER 2017-03-31 10:28 | Emergency (ER) | payer OTHER ==
[2017-03-31 10:55] VITALS: BP 125/73
[2017-03-31] MEDS: ONDANSETRON HCL 4 MG TAB.RAPDIS PO ONE (11:35)
[2017-03-31] MEDS: ONDANSETRON HCL/PF 4 MG/ 2ML VIAL IM ONE (12:02)
[2017-03-31] MEDS: HYDROmorphone HCL 2 MG TABLET PO ONE (12:03)
--- NOTE | 2017-03-31 12:33 | ED Physician Documentation ---
Abdominal Pain - HISTORIAN Historian: patient - HPI Stated Complaint: unable to urinate Chief Complaint: Abdominal Pain Additonal Information: Pt. states urinated blood yesterday with clots, claims no urine production since last night but then later tells nurse he has had nothing to drink for 3 days because "if nothing is coming out, why should I put anything in?" Claims his abdomen hurts in right upper and lower quadrants and right flank. Onset: days ago (1) Duration: constant, sudden-onset Timing: still present Context: denies: out of country travel, bad food, recent trauma Severity: moderate Quality: sharp Front/Back of Body, Lg (Color): 1 - pain 2 - pain and tenderness Associated Symptoms: loss of appetite, back pain (right flank), other (dcreased urine, blood in urine). denies: fever, chills, nausea, vomiting, coffee ground emesis, bloody emesis, diarrhea, bloody stools, grossly bloody stools, mucous, sweating, chest pain, testicular pain, neck pain Exacerbated by: nothing Relieved by: nothing Further Comments: no - ROS CONST: no problems GI/: bloody urine CVS/RESP: none EYES/ENT: none MS/SKIN/LYMPH: none NEURO/PSYCH: none - SOCIAL HX Smoking History: cigarettes Alcohol Use: none Drug Use: none - FAMILY HX Family History: no significant history - PAST HX Past History: other (lupus) Ischemic Bowel Risk Factors: other (multiple surgeries) Other History: other (lupus, right medulllary kidney stone, asthma) Surgeries/Procedures: other (multiple) Immunizations: referred to PCP Home Medications: Ambulatory Orders Medication Instructions Recorded Albuterol Sulfate [Ventolin HFN] 2.5 mg NEB Q4 12/28/16 Warfarin Sodium 5 mg PO DAILY 12/28/16 predniSONE [Deltasone] 80 mg PO QD 12/28/16 Alendronate Sodium [Fosamax] 70 mg PO WEEK 01/02/17 Budesonide/Formoterol Fumarate 1 inh PO QDAY 01/02/17 [Symbicort 160-4.5 Mcg Inhaler] Cetirizine HCl [Zyrtec] 10 mg PO QDAY 01/02/17 HYDROmorphone HCL [Dilaudid] 2 mg PO Q4 01/02/17 Montelukast Sodium [Singulair] 10 mg PO QDAY 01/02/17 Theophylline Anhydrous 300 mg PO BID 01/02/17 [Theophylline] Tiotropium [place] [Spiriva] 1 inh IH QD 01/02/17 Hydroxychloroquine Sulfate 200 mg PO D 01/25/17 [Hydroxychloroquine Sulfate] Allergies/Adverse Reactions: Allergies Allergy/AdvReac Type Severity Reaction Status Date / Time NSAIDS (Non-Steroidal Allergy Severe Anaphylaxis Verified 03/31/17 11:09 Anti-Inflamma acetaminophen [From Tylenol] Allergy Intermediate Hives Verified 03/31/17 11:09 vancomycin HCl Allergy Intermediate Hives Verified 03/31/17 11:09 [From Vancocin] - VITAL SIGNS Vital Signs: Vital Signs Temp Pulse Resp BP Pulse Ox 98.2 F 93 H 20 125/73 97 03/31/17 10:28 03/31/17 10:28 03/31/17 10:28 03/31/17 10:28 03/31/17 10:28 - REVIEWED ASSESSMENTS Nursing Assessment Reviewed: Yes Vitals Reviewed: Yes Progress - Results/Orders Results/Orders: cbc, cmp, ua planned - Progress Progress: pt. given zofran 4 mg p.o. and dilaudid 2 mg p.o. in er Critical Care Note - Critical Care Note Total Time (mins): 0 ED Results Lab/Radiology - Lab Results Lab Results: cbc, cmp, ua planned, pt. left before they could be obtained - Radiology Radiology Impressions: us of right kidney, ureter and bladder show intramedullary stone right kidney - Orders Orders: ED Orders Category Date Time Status Seay [Urinary catheterization] 1T Care 03/31/17 11:05 Active US RETROPERITONEAL COMPLETE [US] Stat Exams 03/31/17 Completed HYDROmorphone HCL [Dilaudid] Med 03/31/17 11:16 Discontinued 2 mg PO 1T ONE Ondansetron HCl Rapdis [Zofran Odt] Med 03/31/17 11:17 Discontinued 4 mg PO NOW ONE Ondansetron HCl/Pf [Zofran 4 mg/2 ml] Med 09/21/17 11:15 Discontinued 4 mg IM NOW ONE Abdominal Pain Physical Exam - Physical Exam General Appearance: alert, moderate distress EENT: eye inspection normal, ENT inspection normal, pharynx normal, no signs of dehydration, PRAFUL, no nystagmus, TM's nml NECK: normal inspection, thyroid normal, supple RESPIRATORY: no resp distress, chest non-tender, breath sounds normal CVS: reg rate & rhythm, heart sounds normal, equal pulses, no murmur, no gallop , PMI nml, no JVD ABDOMEN: soft, no organomegaly, normal bowel sounds, tenderness (right upper and lower quadrants) RECTAL: other (refuses) BACK: CVA tenderness (R) SKIN: warm/dry, normal color NEURO: oriented X3, CN's nml as tested, motor nml, sensation nml, cognition normal Vital Signs: Vital Signs Temp Pulse Resp BP Pulse Ox 98.2 F 93 H 20 125/73 97 03/31/17 10:28 03/31/17 10:28 03/31/17 10:28 03/31/17 10:28 03/31/17 10:28 Discharge Clincal Impression: Hematuria Qualifiers: Hematuria type: gross Qualified Code(s): R31.0 - Gross hematuria Referrals: Primary Doctor,No [Primary Care Provider] - 2 Days Comments: Recommended in and out catheter for ua. Pt. refused. Recommended rectal exam to check prostate. Refused. Was planning IV fluids for UA. Pt. walked out of the ER area and never returned before any further workup, laboratory or treatment could be done. Condition: Good Disposition: 07 AGAINST MEDICAL ADVICE Decision to Admit: NO Decision Time: 12:30
--- NOTE | 2017-03-31 14:34 | Diagnostic Imaging Report ---
ADRIAN DONOVAN [facility] [address] [facility] [address] Report Submission Date: Mar 31, 2017 12:12:31 PM CDT Patient Study Name: EDMUNDO PATTERSON Date: Mar 31, 2017 11:45:39 AM CDT Modality Type: US Gender: M Description: US RETROPERITONEAL LIMIT : 87 Institution: [facility] Physician: ADRIAN DONOVAN Examination: Ultrasound kidneys History: Right flank discomfort Comparison exams: None available Findings: Right kidney measures 9.9 cm in length. Left kidney measures 10.0 cm in length. No evidence for cortical mass bilaterally. 4.6 mm echogenic structure mid inferior margin right kidney. No suspicious left-sided density. No hydronephrosis bilaterally. Bladder margins without irregularity. Bilateral ureteral jets. Bladder volume 170 mL. Impression: Right nephrolithiasis. No evidence for cortical mass or lesion. No hydronephrosis. Electronically signed on Mar 31, 2017 12:12:31 PM CDT by: Byron CORONA
== END 2017-03-31 12:10 | disposition left against medical advice (07) ==
LOC: ED 10:28
DX: R31.0 Gross hematuria (principal); Z53.21 Procedure and treatment not carried out due to patient leaving prior to being seen by health care provider
CPT/HCPCS: 76770; A9270; 99283

== ENCOUNTER 2017-04-01 11:35 | Emergency (ER) | payer OTHER ==
[2017-04-01] MEDS ORDERED: ALBUTEROL SULFATE 2.5 MG/3 ML AMPUL.NEB NEB ONE ×2 (11:37→12:01)
--- NOTE | 2017-04-01 11:47 | ED Physician Documentation ---
Dyspnea - HISTORIAN Historian: patient - HPI Stated Complaint: shortness of breath since last night Chief Complaint: Asthma Onset: hours (2) Duration: continues in ED Severity: moderate Exacerbated By: coughing Associated Symptoms: heart racing. denies: chills, fever, sweating, chest pain , chest discomfort, productive cough Further Comments: no - ROS CONST: no problems GI/: none NEURO/PSYCH: denies: headache - PAST HX Lung Disease: asthma Cardiac Disease: none PE Risk Factors: hx DVT, hx of PE Surgeries/Procedures: other (has had several intubations ) Immunizations: referred to PCP - VITAL SIGNS Vital Signs: Vital Signs Temp Pulse Resp BP Pulse Ox 125/73 03/31/17 10:28 <Maggie Ibarra - Last Filed: 04/01/17 11:46> - SOCIAL HX Smoking History: cigarettes Alcohol Use: none Drug Use: none - FAMILY HX Family History: no significant history - VITAL SIGNS Vital Signs: Vital Signs Temp Pulse Resp BP Pulse Ox 98.7 F 115 H 28 H 170/128 97 04/01/17 12:15 04/01/17 12:15 04/01/17 12:15 04/01/17 12:15 04/01/17 13:04 - REVIEWED ASSESSMENTS Nursing Assessment Reviewed: Yes Vitals Reviewed: Yes <Blake Doshi - Last Filed: 04/01/17 13:56> - PAST HX Allergies/Adverse Reactions: Allergies Allergy/AdvReac Type Severity Reaction Status Date / Time NSAIDS (Non-Steroidal Allergy Severe Anaphylaxis Verified 04/01/17 12:05 Anti-Inflamma acetaminophen [From Tylenol] Allergy Intermediate Hives Verified 04/01/17 12:05 vancomycin HCl Allergy Intermediate Hives Verified 04/01/17 12:05 [From Vancocin] Home Medications: Ambulatory Orders Medication Instructions Recorded Albuterol Sulfate [Ventolin HFN] 2.5 mg NEB Q4 12/28/16 Warfarin Sodium 5 mg PO DAILY 12/28/16 predniSONE [Deltasone] 80 mg PO QD 12/28/16 Alendronate Sodium [Fosamax] 70 mg PO WEEK 01/02/17 Budesonide/Formoterol Fumarate 1 inh PO QDAY 01/02/17 [Symbicort 160-4.5 Mcg Inhaler] Cetirizine HCl [Zyrtec] 10 mg PO QDAY 01/02/17 HYDROmorphone HCL [Dilaudid] 2 mg PO Q4 01/02/17 Montelukast Sodium [Singulair] 10 mg PO QDAY 01/02/17 Theophylline Anhydrous 300 mg PO BID 01/02/17 [Theophylline] Tiotropium [place] [Spiriva] 1 inh IH QD 01/02/17 Hydroxychloroquine Sulfate 200 mg PO D 01/25/17 [Hydroxychloroquine Sulfate] Progress - Results/Orders Results/Orders: cbc, cmp, ua, cxr ordered - Progress Progress: unable to establish IV, pt. given 80 mg depo medrol and 8 mg decadron IM. Pt. left AMA without labs drawn. 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] NOW Care 04/01/17 12:04 Active Continuous Pulse Oximetry Q1H Care 04/01/17 12:[address] IV Lock 1T Care 04/01/17 12:01 Inactive CHEST 1 VIEW [RAD] Routine Exams 04/01/17 Taken CBC/PLATELET/DIFF Routine Lab 04/01/17 12:02 Ordered CMP Routine Lab 04/01/17 12:02 Ordered URINALYSIS Routine Lab 04/01/17 12:02 Ordered 0.9 % Sodium Chloride [Normal Saline] 1,000 ml Med 04/01/17 12:30 Discontinued IV .Q1H Albuterol Sulfate [Ventolin] Med 04/01/17 11:37 Discontinued 2.5 mg NEB .STK-MED ONE Albuterol Sulfate [Ventolin] Med 04/01/17 12:01 Discontinued 2.5 mg NEB NOW ONE Budesonide [Pulmicort] Med 04/01/17 11:48 Discontinued 0.5 mg NEB .STK-MED ONE Budesonide [Pulmicort] Med 04/01/17 13:00 Discontinued 0.5 mg NEB BID Dexamethasone Sod Phosphate [Decadron] Med 04/01/17 12:48 Discontinued 8 mg .ROUTE .STK-MED ONE Dexamethasone Sod Phosphate [Decadron] Med 04/01/17 13:30 Discontinued 8 mg IM NOW ONE methylPREDNISolone ACETATE [Depo-Medrol] Med 04/01/17 12:48 Discontinued 80 mg IM .STK-MED ONE methylPREDNISolone ACETATE [Depo-Medrol] Med 04/01/17 13:29 Ordered 80 mg IM NOW PRN methylPREDNISolone SOD SUCC [Solu-MEDROL] Med 04/01/17 12:01 Discontinued 125 mg IVP NOW ONE <Blake Doshi - Last Filed: 04/01/17 13:56> Dyspnea Physical Exam - EXAM General Appearance: alert, mild distress EENT: eye inspection normal, ENT inspection normal, pharynx normal, no signs of dehydration, PRAFUL, no nystagmus, TM's nml Neck: nml inspection Respiratory: no resp. distress, no pain on inspiration, speaks full sentences, decreased air movement, wheezes. No: prolonged expirations, dull on percussion , retractions, splinting, accessory muscle use, rales, rhonchi, stridor, no pleuritic chest pain, resp. fatigue, chest wall tenderness CVS: reg. rate & rhythm, no murmur, no gallop, no friction rub, pulses full, pulses equal Abdomen: non-tender, no organomegaly, no distention, no ascites Skin: color nml, no rash Extremities: non-tender, normal range of motion, no evidence of injury, no edema Neuro/Psych: oriented x3, CN's nml as tested, motor nml, sensation nml, mood/ affect nml <Blake Doshi - Last Filed: 04/01/17 13:56> Discharge <Maggie Ibarra - Last Filed: 04/01/17 11:46> Comments: Pt. to be prescribed a prednisone taper and Azmacort HFA 2 puffs bid but pt. left before official discharge and scripts could be done Decision to Admit: NO Decision Time: 13:20 <Blake Doshi - Last Filed: 04/01/17 13:56> Clincal Impression: Asthma attack Referrals: Primary Doctor,No [Primary Care Provider] - 2 Days Condition: Stable Disposition: 07 AGAINST MEDICAL ADVICE
[2017-04-01] MEDS ORDERED: BUDESONIDE 0.5MG/2ML AMPUL.NEB NEB ONE (11:48)
[2017-04-01] MEDS ORDERED: methylPREDNISolone SOD SUCC 125 MG/2 ML VIAL IVP ONE (12:01)
[2017-04-01 12:23] VITALS: BP 170/128
[2017-04-01] MEDS ORDERED: 0.9 % SODIUM CHLORIDE 1,000 ML IV SCH (12:30)
[2017-04-01] MEDS ORDERED: DEXAMETHASONE SOD PHOS 4 MG/ML VIAL ONE (12:48)
[2017-04-01] MEDS ORDERED: methylPREDNISolone ACETATE 80 MG/ML VIAL IM ONE (12:48)
[2017-04-01] MEDS ORDERED: BUDESONIDE 0.5MG/2ML AMPUL.NEB NEB SCH (13:00)
[2017-04-01] MEDS ORDERED: methylPREDNISolone ACETATE 80 MG/ML VIAL IM PRN (13:29)
[2017-04-01] MEDS ORDERED: DEXAMETHASONE SOD PHOS 4 MG/ML VIAL IM ONE (13:30)
--- NOTE | 2017-04-01 15:08 | Diagnostic Imaging Report ---
ADRIAN DONOVAN [facility] [address] [facility] [address] [address] Report Submission Date: Apr 01, 2017 12:42:51 PM CDT Patient Study Name: EMDUNDO PATTERSON Date: Apr 01, 2017 12:27:51 PM CDT Modality Type: CR Gender: M Description: CHEST : 87 Institution: [facility] Physician: ADRIAN DONOVAN Examination: Portable chest History: Chest discomfort Comparison exam: 14 March 2017 Findings: Single view of the chest demonstrates a normal cardiac and mediastinal silhouette. Lung apple without focal infiltrate. No effusion. Osseous structures are appropriate for age. Impression: No acute pulmonary process. Electronically signed on Apr 01, 2017 12:42:51 PM CDT by: Byron CORONA
== END 2017-04-01 13:26 | disposition left against medical advice (07) ==
LOC: ED 11:35
DX: J45.909 Unspecified asthma, uncomplicated (principal); Z53.21 Procedure and treatment not carried out due to patient leaving prior to being seen by health care provider
CPT/HCPCS: 71010; J1040; J1100; J7626; 96372; 99283; S1016

== ENCOUNTER 2017-04-02 02:30 | Emergency (ER) | payer OTHER ==
[2017-04-02] MEDS ORDERED: ALBUTEROL SULFATE 2.5 MG/0.5 ML AMPUL.NEB NEB ONE (02:56)
[2017-04-02] MEDS ORDERED: RACEPINEPHRINE HCL 1 EACH VIAL.NEB NEB ONE (02:57)
[2017-04-02] MEDS ORDERED: DEXAMETHASONE SOD PHOS 4 MG/ML VIAL IM ONE (02:57)
[2017-04-02] MEDS ORDERED: BUDESONIDE 0.5MG/2ML AMPUL.NEB NEB ONE (02:58)
[2017-04-02] MEDS ORDERED: BUDESONIDE 0.5MG/2ML AMPUL.NEB NEB SCH (03:00)
[2017-04-02] MEDS ORDERED: cefTRIAXone SODIUM 1 GM VIAL IM ONE (03:07)
--- NOTE | 2017-04-02 03:32 | ED Physician Documentation ---
Asthma - HISTORIAN Historian: patient - HPI Stated Complaint: soa Chief Complaint: Asthma Additional Information: Left the ER on 04/01/17 for the second time in 24 hours before home medications and discharge instructions could be given and woke tonight with respiratory difficulty Onset: days ago (1) Duration: continues in ED Initiating Event: other (unknown) Context: spontaneous Associated Symptoms:: trouble breathing, shortness of breath. denies: fever, sweating, hurts to breath, productive cough, bloody sputum, chest discomfort, chest pain, chest pressure, chest tightness, chills Current Asthma Therapy: inhaled MDI Further Comments: no - ROS CONST: no problems EYES/ENT: denies: eye redness, eye itching, runny nose CVS: denies: heart racing, palpitations GI/: none MS/SKIN/LYMPH: denies: ankle swelling, leg pain, rash, swollen glands, leg swelling, calf pain NEURO/PSYCH: denies: headache, dizziness, light-headedness, anxiety, tingling hands, muscle spasms hands, tingling face, muscle spasms face - PAST HX Asthma: occasional attacks, previously intubated, previously admitted Lung Disease: asthma DVT/PE Risk Factors: none Other History: other (hernia, lupus, dvt right arm) Surgeries/Procedures: other (hernia repair) Immunizations: referred to PCP Allergies/Adverse Reactions: Allergies Allergy/AdvReac Type Severity Reaction Status Date / Time NSAIDS (Non-Steroidal Allergy Severe Anaphylaxis Verified 04/02/17 02:38 Anti-Inflamma acetaminophen [From Tylenol] Allergy Intermediate Hives Verified 04/02/17 02:38 vancomycin HCl Allergy Intermediate Hives Verified 04/02/17 02:38 [From Vancocin] Home Medications: Ambulatory Orders Medication Instructions Recorded Albuterol Sulfate [Ventolin HFN] 2.5 mg NEB Q4 12/28/16 Warfarin Sodium 5 mg PO DAILY 12/28/16 predniSONE [Deltasone] 80 mg PO QD 12/28/16 Alendronate Sodium [Fosamax] 70 mg PO WEEK 01/02/17 Budesonide/Formoterol Fumarate 1 inh PO QDAY 01/02/17 [Symbicort 160-4.5 Mcg Inhaler] Cetirizine HCl [Zyrtec] 10 mg PO QDAY 01/02/17 HYDROmorphone HCL [Dilaudid] 2 mg PO Q4 01/02/17 Montelukast Sodium [Singulair] 10 mg PO QDAY 01/02/17 Theophylline Anhydrous 300 mg PO BID 01/02/17 [Theophylline] Tiotropium [place] [Spiriva] 1 inh IH QD 01/02/17 Hydroxychloroquine Sulfate 200 mg PO D 01/25/17 [Hydroxychloroquine Sulfate] - SOCIAL HX Smoking History: non-smoker, quit greater than 1 year Alcohol Use: none Drug Use: none - FAMILY HX Family History: other (none) - VITAL SIGNS Vital Signs: Vital Signs Temp Pulse Resp BP Pulse Ox 98.5 F 77 24 144/95 96 04/02/17 02:40 04/02/17 02:40 04/02/17 02:40 04/02/17 02:40 04/02/17 02:40 - REVIEWED ASSESSMENTS Nursing Assessment Reviewed: Yes Vitals Reviewed: Yes Progress - Results/Orders Results/Orders: no testing ordered, cxr yesterday clear of infiltrate - Progress Progress: pt. given albuterol, pulmicort nebulizer txs, decadron 8 mg im in er with resolution of pt's symptoms (pt. had received Depo Medrol yesterday) Critical Care Note - Critical Care Note Total Time (mins): 0 ED Results Lab/Radiology - Lab Results Lab Results: none ordered - Radiology Radiology Impressions: none ordered - Orders Orders: ED Orders Category Date Time Status Albuterol Sulfate Med 04/02/17 02:56 Discontinued 2.5 mg NEB NOW ONE Budesonide [Pulmicort] Med 04/02/17 03:00 Ordered 0.5 mg NEB 1T Dexamethasone Sod Phosphate [Decadron] Med 04/02/17 02:57 Discontinued 8 mg IM NOW ONE Racepinephrine HCl [S-2] Med 04/02/17 02:57 Discontinued 1 each NEB NOW ONE cefTRIAXone SODIUM [Rocephin] Med 04/02/17 03:07 Discontinued 1 gm IM NOW ONE Asthma Physical Exam - EXAM General Appearance: no acute distress EENT: eye inspection normal, ENT inspection normal, pharynx normal, no signs of dehydration, PRAFUL, no nystagmus, TM's nml Neck: nml inspection Respiratory: no resp. distress, breath sounds nml, no pain on inspiration, speaks full sentences. No: respiratory failure, prolonged expirations, dull on percussion, retractions, splinting, accessory muscle use, decreased air movement , wheezes, rales, rhonchi, stridor, no pleuritic chest pain, chest wall tenderness CVS: reg rate & rhythm, heart sounds normal, equal pulses, no murmur, no gallop , PMI nml, no JVD Abdomen: non-tender, no organomegaly, nml bowel sounds, no distention Skin: color nml, no rash Extremities: non-tender, normal range of motion, no evidence of injury, no edema Neuro/Psych: oriented x3, neuro intact, mood/affect nml Discharge Clincal Impression: Asthma Qualifiers: Asthma severity: moderate persistent Asthma complication type: with acute exacerbation Qualified Code(s): J45.41 - Moderate persistent asthma with (acute ) exacerbation Referrals: Primary Doctor,No [Primary Care Provider] - 2 Days Comments: Keflex 500 mg #28 2 p.o. bid, prednisone 10 mg 6 p.o. Sat., 5 p.o. Sun., 4 p.o. Mon., 3 p.o. Tues., 2 p.o. Wed., 1 p.o. Tori. then off, Azmacort HFa 2 puffs bid. Condition: Stable Disposition: 01 HOME, SELF-CARE Decision to Admit: NO Decision Time: 03:20
[2017-04-02 05:14] VITALS: BP 128/88
== END 2017-04-02 03:25 | disposition home or self-care (01) ==
LOC: ED 02:30
DX: J45.41 Moderate persistent asthma with (acute) exacerbation (principal)
CPT/HCPCS: J0696; J1100; J7626; 96372; 99283

== ENCOUNTER 2017-04-02 12:46 | Emergency (ER) | payer OTHER ==
--- NOTE | 2017-04-02 12:56 | ED Physician Documentation ---
Asthma - HISTORIAN Historian: patient - HPI Stated Complaint: shortness of air Chief Complaint: Dyspnea Onset: other (he has been to ER 3 times in last two days for same issue - he has not picked up new meds due to saying he got others filled two weeks ago ) Duration: continues in ED Initiating Event: upper respiratory illness Associated Symptoms:: trouble breathing, shortness of breath, tightness. denies : fever, sweating, hurts to breath, productive cough, chest discomfort, chest pain Current Asthma Therapy: albuterol inhaler, ipratropium Further Comments: no - ROS CONST: no problems GI/: none - PAST HX Asthma: frequent attacks Lung Disease: asthma DVT/PE Risk Factors: prior DVT, prior PE Other History: other (asthma) Surgeries/Procedures: other (he has had trach and intubated several times ) Immunizations: referred to PCP - SOCIAL HX Smoking History: cigarettes Alcohol Use: occasionally - FAMILY HX Family History: denies: emphysema, asthma, CAD, PE, DVT - VITAL SIGNS Vital Signs: Vital Signs Temp Pulse Resp BP Pulse Ox 128/88 04/02/17 03:40 - REVIEWED ASSESSMENTS Nursing Assessment Reviewed: Yes Vitals Reviewed: Yes <Maggie Ibarra - Last Filed: 04/02/17 14:22> - VITAL SIGNS Vital Signs: Vital Signs Temp Pulse Resp BP Pulse Ox 97.7 F 72 18 118/68 98 04/02/17 12:50 04/02/17 13:52 04/02/17 13:52 04/02/17 13:52 04/02/17 13:52 <Zak An - Last Filed: 04/02/17 15:13> - PAST HX Allergies/Adverse Reactions: Allergies Allergy/AdvReac Type Severity Reaction Status Date / Time NSAIDS (Non-Steroidal Allergy Severe Anaphylaxis Verified 04/02/17 02:38 Anti-Inflamma acetaminophen [From Tylenol] Allergy Intermediate Hives Verified 04/02/17 02:38 vancomycin HCl Allergy Intermediate Hives Verified 04/02/17 02:38 [From Vancocin] Home Medications: Ambulatory Orders Medication Instructions Recorded Albuterol Sulfate [Ventolin HFN] 2.5 mg NEB Q4 12/28/16 Warfarin Sodium 5 mg PO DAILY 12/28/16 predniSONE [Deltasone] 80 mg PO QD 12/28/16 Alendronate Sodium [Fosamax] 70 mg PO WEEK 01/02/17 Budesonide/Formoterol Fumarate 1 inh PO QDAY 01/02/17 [Symbicort 160-4.5 Mcg Inhaler] Cetirizine HCl [Zyrtec] 10 mg PO QDAY 01/02/17 HYDROmorphone HCL [Dilaudid] 2 mg PO Q4 01/02/17 Montelukast Sodium [Singulair] 10 mg PO QDAY 01/02/17 Theophylline Anhydrous 300 mg PO BID 01/02/17 [Theophylline] Tiotropium [place] [Spiriva] 1 inh IH QD 01/02/17 Hydroxychloroquine Sulfate 200 mg PO D 01/25/17 [Hydroxychloroquine Sulfate] Cephalexin [Keflex] 1,000 mg PO BID #28 capsule 04/02/17 ED Results Lab/Radiology - Orders Orders: ED Orders Category Date Time Status Albuterol Sulfate Med 04/02/17 13:15 Discontinued 2.5 mg NEB NOW ONE Albuterol Sulfate [Ventolin] Med 04/02/17 13:04 Discontinued 2.5 mg NEB .STK-MED ONE <Zak An - Last Filed: 04/02/17 15:13> Asthma Physical Exam - EXAM General Appearance: no acute distress, alert Neck: nml inspection Respiratory: no resp. distress, wheezes (mild wheeze on expiration left upper lobe ) CVS: reg rate & rhythm, heart sounds normal Abdomen: non-tender Skin: color nml, no rash Extremities: non-tender Neuro/Psych: oriented x3 <Maggie Ibarra - Last Filed: 04/02/17 14:22> Discharge Decision to Admit: NO Date of Decison to Admit: 04/02/17 Decision Time: 14:23 <Maggie Ibarra - Last Filed: 04/02/17 14:22> <Zak An - Last Filed: 04/02/17 15:13> Clincal Impression: Asthma attack, Cough Asthma Qualifiers: Asthma severity: severe persistent Asthma complication type: with acute exacerbation Qualified Code(s): J45.51 - Severe persistent asthma with (acute) exacerbation Prescriptions: Cephalexin [Keflex] 1,000 mg PO BID #28 capsule Referrals: Primary Doctor,No [Primary Care Provider] - 2 Days Condition: Stable Disposition: 01 HOME, SELF-CARE
[2017-04-02] MEDS ORDERED: ALBUTEROL SULFATE 2.5 MG/3 ML AMPUL.NEB NEB ONE (13:04)
[2017-04-02] MEDS ORDERED: ALBUTEROL SULFATE 2.5 MG/0.5 ML AMPUL.NEB NEB ONE (13:15)
[2017-04-02 13:54] VITALS: BP 118/68
== END 2017-04-02 13:52 | disposition home or self-care (01) ==
LOC: ED 12:46
DX: J45.51 Severe persistent asthma with (acute) exacerbation (principal); R05 Cough
CPT/HCPCS: 99283

== ENCOUNTER 2017-04-08 00:35 | Emergency (ER) | payer OTHER ==
[~2017-04-08 00:35] MED LIST: IPRATROPIUM/ALBUTEROL SULFATE 3 ML AMPUL.NEB NEB ONE
[2017-04-08] MEDS ORDERED: SODIUM CHLORIDE 3 ML VIAL.NEB IH ONE (00:52)
[2017-04-08] MEDS ORDERED: IPRATROPIUM/ALBUTEROL SULFATE 3 ML AMPUL.NEB NEB ONE (00:52)
--- NOTE | 2017-04-08 01:28 | ED Physician Documentation ---
General Adult - HISTORIAN Historian: patient - HPI Stated Complaint: SOA Chief Complaint: General Adult Additional Information: Asthma not getting better. Using neb's at home quite frequently, but 40 minutes after, he is wheezing worse. Has been taking keflex and prednisone as prescribed last time in ER, less than a week ago. Denies smoking or smoke exposure. Onset: days ago - ROS CONST: denies: fever - PAST HX Past History: other (multiple intubations) Allergies/Adverse Reactions: Allergies Allergy/AdvReac Type Severity Reaction Status Date / Time NSAIDS (Non-Steroidal Allergy Severe Anaphylaxis Verified 04/08/17 00:51 Anti-Inflamma acetaminophen [From Tylenol] Allergy Intermediate Hives Verified 04/08/17 00:51 vancomycin HCl Allergy Intermediate Hives Verified 04/08/17 00:51 [From Vancocin] Home Medications: Ambulatory Orders Medication Instructions Recorded Albuterol Sulfate [Ventolin HFN] 2.5 mg NEB Q4 12/28/16 Warfarin Sodium 5 mg PO DAILY 12/28/16 predniSONE [Deltasone] 80 mg PO QD 12/28/16 Alendronate Sodium [Fosamax] 70 mg PO WEEK 01/02/17 Budesonide/Formoterol Fumarate 1 inh PO QDAY 01/02/17 [Symbicort 160-4.5 Mcg Inhaler] Cetirizine HCl [Zyrtec] 10 mg PO QDAY 01/02/17 HYDROmorphone HCL [Dilaudid] 2 mg PO Q4 01/02/17 Montelukast Sodium [Singulair] 10 mg PO QDAY 01/02/17 Theophylline Anhydrous 300 mg PO BID 01/02/17 [Theophylline] Tiotropium [place] [Spiriva] 1 inh IH QD 01/02/17 Hydroxychloroquine Sulfate 200 mg PO D 01/25/17 [Hydroxychloroquine Sulfate] Cephalexin [Keflex] 1,000 mg PO BID #28 capsule 04/02/17 - SOCIAL HX Smoking History: quit greater than 1 year - FAMILY HX Family History: No - VITAL SIGNS Vital Signs: Vital Signs Temp Pulse Resp BP Pulse Ox 98 H 22 114/95 98 04/08/17 00:40 04/08/17 00:40 04/08/17 00:40 04/08/17 00:40 - REVIEWED ASSESSMENTS Nursing Assessment Reviewed: Yes Vitals Reviewed: Yes Progress - Progress Progress: Chest 2 views History: Wheezing and asthma Findings: Low lung volumes are observed with bronchovascular crowding at the lung bases. Bronchitis cannot be excluded. There is no pleural effusion. Heart size is normal. Impression: Low lung volumes with bibasilar bronchovascular crowding versus bronchitis. Electronically signed on Apr 08, 2017 1:38:07 AM CDT by: Eric Pearl [id number], wheezing resolved, moving more air, voice normal. ED Results Lab/Radiology - Orders Orders: ED Orders Category Date Time Status CHEST 2 VIEW [CHEST P.A.&LAT 2 VIEWS] [RAD] Stat Exams 04/08/17 Ordered Ipratropium/Albuterol Sulfate [Duoneb] Med 04/08/17 00:52 Discontinued 3 ml NEB .STK-MED ONE Sodium Chloride For Inhalation [Dey] Med 04/08/17 00:52 Discontinued 3 ml IH .STK-MED ONE General Adult Physical Exam - PHYSICAL EXAM GENERAL APPEARANCE: mild distress EENT: eye inspection normal NECK: normal inspection, supple RESPIRATORY: breath sounds normal (but decreased throughout), wheezes (LLL) CVS: reg rate & rhythm, heart sounds normal BACK: other (erect posture, movements w/o pain) SKIN: warm/dry, normal color EXTREMITIES: normal range of motion (gait and stance), no evidence of injury NEURO: CN's nml as tested, motor nml, sensation nml Discharge Clincal Impression: Bronchitis Referrals: Primary Doctor,No [Primary Care Provider] - 2 Days Additional Instructions: Drink plenty of water. Take all the antibiotics as prescribed. Continue your usual medications. Condition: Fair Disposition: 01 HOME, SELF-CARE Decision to Admit: NO Decision Time: 01:47
--- NOTE | 2017-04-08 01:42 | Diagnostic Imaging Report ---
JUSTYN WALKER [facility] [address] [facility] [address] [place] [address]. [id number] Report Submission Date: Apr 08, 2017 1:38:07 AM CDT Patient Study Name: EDMUNDO PATTERSON Date: Apr 08, 2017 1:14:47 AM CDT Modality Type: CR Gender: M Description: CHEST : 86 Institution: [facility] Physician: JUSTYN WALKER - STEVE Chest 2 views History: Wheezing and asthma Findings: Low lung volumes are observed with bronchovascular crowding at the lung bases. Bronchitis cannot be excluded. There is no pleural effusion. Heart size is normal. Impression: Low lung volumes with bibasilar bronchovascular crowding versus bronchitis. Electronically signed on Apr 08, 2017 1:38:07 AM CDT by: Eric CORONA
[2017-04-08] MEDS ORDERED: AZITHROMYCIN 250 MG TABLET PO ONE (01:50)
[2017-04-08 02:01] VITALS: BP 108/83
== END 2017-04-08 01:55 | disposition home or self-care (01) ==
LOC: ED 00:35
DX: J40 Bronchitis, not specified as acute or chronic (principal)
CPT/HCPCS: 71020; 99283

== ENCOUNTER 2017-10-09 15:54 | Emergency (ER) | payer OTHER ==
--- NOTE | 2017-10-09 16:06 | ED Physician Documentation ---
General Adult - HISTORIAN Historian: patient - HPI Stated Complaint: sob, hematuria Chief Complaint: General Adult Onset: hours Timing: still present Severity: moderate Further Comments: yes (Pt is a 32 yo male with sob and wheezing and also with hematuria. Pt has an extensive PMHx with asthma/COPD/bronchitis, numerous intubations (>25), as well as Lupus, PE's, DVT's with IVC filter placed, renal dz 2nd to Lupus. Pt has been on dialysis in the past. Pt repiratory sx began 2 days ago and home nebs have not been sufficient. Pt had hematuria that began today. 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, hx MRSA, PE.) Allergies/Adverse Reactions: Allergies Allergy/AdvReac Type Severity Reaction Status Date / Time NSAIDS (Non-Steroidal Allergy Severe Anaphylaxis Verified 04/08/17 00:51 Anti-Inflamma acetaminophen [From Tylenol] Allergy Intermediate Hives Verified 04/08/17 00:51 vancomycin HCl Allergy Intermediate Hives Verified 04/08/17 00:51 [From Vancocin] Home Medications: Ambulatory Orders Medication Instructions Recorded Albuterol Sulfate [Ventolin HFN] 2.5 mg NEB Q4 12/28/16 Warfarin Sodium 5 mg PO DAILY 12/28/16 predniSONE [Deltasone] 80 mg PO QD 12/28/16 Alendronate Sodium [Fosamax] 70 mg PO WEEK 01/02/17 Budesonide/Formoterol Fumarate 1 inh PO QDAY 01/02/17 [Symbicort 160-4.5 Mcg Inhaler] Cetirizine HCl [Zyrtec] 10 mg PO QDAY 01/02/17 HYDROmorphone HCL [Dilaudid] 2 mg PO Q4 01/02/17 Montelukast Sodium [Singulair] 10 mg PO QDAY 01/02/17 Theophylline Anhydrous 300 mg PO BID 01/02/17 [Theophylline] Tiotropium [place] [Spiriva] 1 inh IH QD 01/02/17 Hydroxychloroquine Sulfate 200 mg PO D 01/25/17 [Hydroxychloroquine Sulfate] Cephalexin [Keflex] 1,000 mg PO BID #28 capsule 04/02/17 Azithromycin [Zithromax] 250 mg PO DAILY #4 tablet 04/08/17 Ciprofloxacin HCl [Cipro] 500 mg PO BID #20 tablet 10/09/17 - SOCIAL HX Smoking History: non-smoker - FAMILY HX Family History: No - VITAL SIGNS Vital Signs: Vital Signs Temp Pulse Resp BP Pulse Ox 108/83 04/08/17 01:55 - REVIEWED ASSESSMENTS Nursing Assessment Reviewed: Yes Vitals Reviewed: Yes Progress - Progress Progress: Duoneb HFN wheezing much improved U/A pos nitrite; 1+ leuk; 3+ blood Rx Ciprofloxacin 500 mg po q 12 h x 10 days. return to ER if sx worsen or you have concerns. f/u pcp General Adult Physical Exam - PHYSICAL EXAM GENERAL APPEARANCE: moderate distress EENT: pharynx normal NECK: normal inspection, supple RESPIRATORY: wheezes CVS: reg rate & rhythm, heart sounds normal ABDOMEN: soft, normal bowel sounds, tenderness (R flank) BACK: normal inspection, CVA tenderness (R) SKIN: warm/dry, normal color EXTREMITIES: non-tender, normal range of motion NEURO: oriented X3, motor nml, sensation nml Discharge Clincal Impression: Wheezing Urinary tract infection with hematuria Qualifiers: Urinary tract infection type: site unspecified Qualified Code(s): N39.0 - Urinary tract infection, site not specified; R31.9 - Hematuria, unspecified; R31.9 - Hematuria, unspecified Prescriptions: Ciprofloxacin HCl [Cipro] 500 mg PO BID #20 tablet Referrals: Primary Doctor,No [Primary Care Provider] - 2 Days Condition: Stable Disposition: HOME, SELF-CARE Decision to Admit: NO Decision Time: 17:25
[2017-10-09] MEDS ORDERED: IPRATROPIUM/ALBUTEROL SULFATE 3 ML AMPUL.NEB NEB ONE (16:07)
--- NOTE | 2017-10-09 16:50 | Diagnostic Imaging Report ---
CAMDEN NAVARRETE [facility] [address] [facility] [address] [id number] Report Submission Date: Oct 09, 2017 4:44:26 PM CDT Patient Study Name: EDMUNDO PATTERSON Date: Oct 09, 2017 4:27:34 PM CDT Modality Type: DX Gender: M Description: CHEST : 86 Institution: [facility] Physician: CAMDEN NAVARRETE Chest 2 views Date of Exam: October 09, 2017. Findings: No comparison studies are provided. The cardiac and mediastinal silhouettes are normal. The lungs are clear. There is no evidence of pulmonary infiltrate or pleural effusion. A left-sided chest port is present with catheter tip in the midline. Impression: No acute cardiopulmonary abnormality. Electronically signed on Oct 09, 2017 4:44:26 PM CDT by: Sis CORONA
[2017-10-09 18:04] VITALS: BP 108/83
[2017-10-10 07:00] LABS: APPEARANCE,URINE CLOUDY (CLEAR); COLOR,URINE RED (YELLOW)
[2017-10-10 07:01] LABS: OCCULT BLOOD,URINE 3+ (NEGATIVE); PH URINE 8.5 (5.0 - 8.0); UROBILINOGEN URINE 0.2 Eu (0.2-1.0)
== END 2017-10-09 17:10 | disposition home or self-care (01) ==
LOC: ED 15:54
DX: R06.2 Wheezing (principal); N39.0 Urinary tract infection, site not specified; R31.9 Hematuria, unspecified
CPT/HCPCS: 71046; 81002; 87086; 94640; 99283

== ENCOUNTER 2017-10-14 08:45 | Emergency (ER) | payer OTHER ==
--- NOTE | 2017-10-14 08:58 | ED Physician Documentation ---
General Adult - HISTORIAN Historian: patient - HPI Chief Complaint: Dyspnea Additional Information: 32yo male with a history of asthma. Has been taking Symbicort, spiriva, theophyline, duoneb via HFN and MDI, Prednisone 60mg daily at home. This AM awoke and was having some increase problems that taking Duoneb via HFN did not help. Has just moved from [place] several weeks ago and has not established care with anyone at this time. He was in this area last year for greater then 6 months and never established care with any providers. Patient states that he has continued to have some hematuria, gross at times. Was seen in ED several days back for this. Was given Cipro and states that he had it filled but does not remember where he got it filled. when he finished it or how he took it. Urine culture has come back no growth. Patient has been seen in the past several time in this ED for similar symptoms. Timing: still present - ROS CONST: denies: fever, chills - PAST HX Past History: asthma, COPD, CHF, other (Lupus, chronic anticoagulation therapy for recurrent DVT.) Surgeries/Procedures: other (port-a-cath placement, IVT filter in LUE, nasal poly removal, umbilical hernia repair. ) Allergies/Adverse Reactions: Allergies Allergy/AdvReac Type Severity Reaction Status Date / Time NSAIDS (Non-Steroidal Allergy Severe Anaphylaxis Verified 10/14/17 09:06 Anti-Inflamma acetaminophen [From Tylenol] Allergy Intermediate Hives Verified 10/14/17 09:06 vancomycin HCl Allergy Intermediate Hives Verified 10/14/17 09:06 [From Vancocin] Home Medications: Ambulatory Orders Medication Instructions Recorded Albuterol Sulfate [Ventolin HFN] 2.5 mg NEB Q4 12/28/16 Warfarin Sodium 5 mg PO DAILY 12/28/16 predniSONE [Deltasone] 80 mg PO QD 12/28/16 Alendronate Sodium [Fosamax] 70 mg PO WEEK 01/02/17 Budesonide/Formoterol Fumarate 1 inh PO QDAY 01/02/17 [Symbicort 160-4.5 Mcg Inhaler] Cetirizine HCl [Zyrtec] 10 mg PO QDAY 01/02/17 HYDROmorphone HCL [Dilaudid] 2 mg PO Q4 01/02/17 Montelukast Sodium [Singulair] 10 mg PO QDAY 01/02/17 Theophylline Anhydrous 300 mg PO BID 01/02/17 [Theophylline] Tiotropium [place] [Spiriva] 1 inh IH QD 01/02/17 Hydroxychloroquine Sulfate 200 mg PO D 01/25/17 [Hydroxychloroquine Sulfate] Cephalexin [Keflex] 1,000 mg PO BID #28 capsule 04/02/17 Azithromycin [Zithromax] 250 mg PO DAILY #4 tablet 04/08/17 Ciprofloxacin HCl [Cipro] 500 mg PO BID #20 tablet 10/09/17 - SOCIAL HX Smoking History: non-smoker Alcohol Use: occasionally Drug Use: marijuana - FAMILY HX Family History: Yes - VITAL SIGNS Vital Signs: Vital Signs Temp Pulse Resp BP Pulse Ox 108/83 10/09/17 17:25 - REVIEWED ASSESSMENTS Nursing Assessment Reviewed: Yes Vitals Reviewed: Yes Progress - Progress Progress: 10:18 Patient is moving air better, just having some mild wheezing with expiration at this time. 10:48 patient pulled out access to port and left without telling anyone that he was leaving. ED Results Lab/Radiology - Radiology Radiology Impressions: Examination: PA and lateral chest. History: Evaluate lung apple. CXR, COUGH, DYSPNEA TODAY, PT STATES A HX OF ASTHMA AND FORMER SMOKER (Hx) Comparison exam: 09 October 2017 Findings: PA lateral chest demonstrate a normal cardiac and mediastinal silhouette. No focal infiltrate. No blunting of the costophrenic margins. Left- sided laila cath. Osseous structures are appropriate for age. Impression: No acute pulmonary process. Examination: CT Abdomen/pelvis History: CT A/P WITHOUT CONTRAST, HEMATURIA, RT SIDED ABDOMINAL DISCOMFORT X2-3 DAYS (Hx) Comparison exams: None available Technique: CT Abdomen/pelvis without IV protocol. Findings: Liver, spleen, adrenals, pancreas, and gallbladder are without gross irregularity given exam technique. No gallstone. 1 mm right mid renal calcification. No suspicious left renal calcifications. Ureters are nondilated in their course through the abdomen and pelvis. No central calcifications. Bladder margin within normal limits. Abdominal aorta without aneurysm or peripheral atherosclerotic disease. Cardiac silhouette is not enlarged. No pericardial effusion. Bowel unopacified limiting evaluation. No abnormal dilation. Stool within the large bowel limiting sensitivity. No mesenteric inflammatory changes or free fluid. Appendix is visualized and is without inflammatory changes. Hiatal hernia. Osseous structures within normal limits. Lung bases without infiltrate. No effusion. Impression: 1 mm right nephrolithiasis. Known left nephrolithiasis. No ureterolithiasis. No abdominal mass or acute inflammatory process. No abnormal bowel dilation or inflammation. No gallstone. Hiatal hernia. No lung base consolidation or effusion. General Adult Physical Exam - PHYSICAL EXAM GENERAL APPEARANCE: mild distress EENT: eye inspection normal, ENT inspection normal, pharynx normal, no signs of dehydration NECK: normal inspection, thyroid normal, supple. No: lymphadenopathy, stiff neck RESPIRATORY: chest non-tender, wheezes (both inspiratory and exspiratory). No: rales, rhonchi CVS: reg rate & rhythm (mild tachy), heart sounds normal, equal pulses ABDOMEN: soft, no organomegaly, normal bowel sounds, no abdominal bruit, no distension, non-tender BACK: normal inspection, no CVA tenderness SKIN: warm/dry, normal color NEURO: mood/affect nml, cognition normal Discharge Clincal Impression: Hematuria Qualifiers: Hematuria type: benign essential microscopic Qualified Code(s): R31.1 - Benign essential microscopic hematuria Asthma attack Qualifiers: Asthma severity: moderate Asthma persistence: unspecified Qualified Code(s): J45.901 - Unspecified asthma with (acute) exacerbation Referrals: Primary Doctor,No [Primary Care Provider] - 2 Days Additional Instructions: It is important for you to get established with a primary care provider NEXT WEEK and back hoe operator. I have an appointment with a back hoe operator with Dr Smith on November 04 at 2 PM. Go to the outpatient department at the hospital to be seen. Take you medications as prescribed. You will need to follow up with your primary care provider for further evaluation of your hematuria (blood in urine). Condition: Stable Disposition: 01 HOME, SELF-CARE Decision to Admit: NO Date of Decison to Admit: 10/14/17 Decision Time: 10:50
[2017-10-14 09:06] VITALS: BP 123/82
[2017-10-14] MEDS ORDERED: methylPREDNISolone SOD SUCC 125 MG/2 ML VIAL IVP ONE (09:07)
[2017-10-14] MEDS ORDERED: IPRATROPIUM/ALBUTEROL SULFATE 3 ML AMPUL.NEB NEB ONE ×2 (09:09→09:10)
[2017-10-14 09:44] LABS: BASOPHILS % 0.4 (0.0-1.5); EOSINOPHILS % 5.5 % (0.0-6.8); MEAN CORPUSCULAR HEMOGLOBIN 18.9 pg (28.0-34.0); MONOCYTES % 5.5 % (0.0-11.0); NEUTROPHILS # 5.8 # k/uL (1.4-7.7)
[2017-10-14 09:51] LABS: eGFR (African) > 60; eGFR (Non-African) > 60
[2017-10-14 10:01] LABS: APPEARANCE,URINE CLEAR (CLEAR); COLOR,URINE RED (YELLOW); OCCULT BLOOD,URINE 3+ (NEGATIVE); PH URINE 5.5 (5.0 - 8.0)
[2017-10-14] MEDS ORDERED: ALBUTEROL SULFATE 2.5 MG/3 ML AMPUL.NEB NEB ONE ×2 (10:40)
--- NOTE | 2017-10-14 17:58 | Diagnostic Imaging Report ---
CHERYL BYERS [facility] [address] [facility].[address] [id number] Report Submission Date: Oct 14, 2017 10:08:34 AM CDT Patient Study Name: EDMUNDO PATTERSON Date: Oct 14, 2017 9:50:37 AM CDT Modality Type: DX Gender: M Description: CHEST : 87 Institution: [facility] Physician: CHERYL BYERS Examination: PA and lateral chest. History: Evaluate lung apple. CXR, COUGH, DYSPNEA TODAY, PT STATES A HX OF ASTHMA AND FORMER SMOKER (Hx) Comparison exam: 09 October 2017 Findings: PA lateral chest demonstrate a normal cardiac and mediastinal silhouette. No focal infiltrate. No blunting of the costophrenic margins. Left- sided laila cath. Osseous structures are appropriate for age. Impression: No acute pulmonary process. Electronically signed on Oct 14, 2017 10:08:34 AM CDT by: Byron CORONA
--- NOTE | 2017-10-14 17:59 | Diagnostic Imaging Report ---
CHERYL BYERS [facility] [address] [facility] [address] [place] [address]. [id number] Report Submission Date: Oct 14, 2017 10:32:37 AM CDT Patient Study Name: EDMUNDO PATTERSON Date: Oct 14, 2017 10:07:49 AM CDT Modality Type: CT\SR Gender: M Description: CT ABD PELVIS W/O CO : 86 Institution: [facility] Physician: CHERYL BYERS Examination: CT Abdomen/pelvis History: CT A/P WITHOUT CONTRAST, HEMATURIA, RT SIDED ABDOMINAL DISCOMFORT X2-3 DAYS (Hx) Comparison exams: None available Technique: CT Abdomen/pelvis without IV protocol. Findings: Liver, spleen, adrenals, pancreas, and gallbladder are without gross irregularity given exam technique. No gallstone. 1 mm right mid renal calcification. No suspicious left renal calcifications. Ureters are nondilated in their course through the abdomen and pelvis. No central calcifications. Bladder margin within normal limits. Abdominal aorta without aneurysm or peripheral atherosclerotic disease. Cardiac silhouette is not enlarged. No pericardial effusion. Bowel unopacified limiting evaluation. No abnormal dilation. Stool within the large bowel limiting sensitivity. No mesenteric inflammatory changes or free fluid. Appendix is visualized and is without inflammatory changes. Hiatal hernia. Osseous structures within normal limits. Lung bases without infiltrate. No effusion. Impression: 1 mm right nephrolithiasis. Known left nephrolithiasis. No ureterolithiasis. No abdominal mass or acute inflammatory process. No abnormal bowel dilation or inflammation. No gallstone. Hiatal hernia. No lung base consolidation or effusion. Electronically signed on Oct 14, 2017 10:32:37 AM CDT by: Byron CORONA
== END 2017-10-14 10:46 | disposition home or self-care (01) ==
LOC: ED 08:45
DX: J45.901 Unspecified asthma with (acute) exacerbation (principal); R31.1 Benign essential microscopic hematuria
CPT/HCPCS: 36415; 71046; 74176; 80053; 81002; 85025; 85610; 87086; J2930; 94640; 96374; 99283

== ENCOUNTER 2018-06-06 06:09 | Emergency (ER) | payer SELFPAY ==
[2018-06-06] MEDS ORDERED: LIDOCAINE HCL 1% PF 50MG/5ML AMP (IM/SUTURE/PAIN CLINIC) IJ ONE (06:40)
--- NOTE | 2018-06-06 07:01 | ED Physician Documentation ---
General Adult - HISTORIAN Historian: patient - HPI Stated Complaint: Right arm pain Chief Complaint: General Adult Further Comments: yes (33 year old male patient presents with complaints of right arm pain and swelling. Patient was discharged from [facility] 3 days ago after an ICU admission for asthma exacerbation. Patient has history of 6 PICC lines; patient reports having portacaths in both "shoulders". States he has had to have central lines during his last admissions.) - ROS CONST: recent illness ([facility] admission) EYES/ENT: none CVS/RESP: cough. denies: chest pain, shortness of breath GI/: none MS/SKIN/LYMPH: other (right upper arm edema and pain; left lower arm redness and edema) - PAST HX Past History: asthma, other (multiple central lines; PICCs and portacaths; asthma, multiple intubations) Other History: hepatitis Allergies/Adverse Reactions: Allergies Allergy/AdvReac Type Severity Reaction Status Date / Time NSAIDS (Non-Steroidal Allergy Severe Anaphylaxis Verified 06/06/18 06:18 Anti-Inflamma acetaminophen [From Tylenol] Allergy Intermediate Hives Verified 06/06/18 06:18 vancomycin HCl Allergy Intermediate Hives Verified 06/06/18 06:18 [From Vancocin] Home Medications: Ambulatory Orders Medication Instructions Recorded Albuterol Sulfate [Ventolin HFN] 2.5 mg NEB Q4 12/28/16 Warfarin Sodium 5 mg PO DAILY 12/28/16 predniSONE [Deltasone] 80 mg PO QD 12/28/16 Alendronate Sodium [Fosamax] 70 mg PO WEEK 01/02/17 Budesonide/Formoterol Fumarate 1 inh PO QDAY 01/02/17 [Symbicort 160-4.5 Mcg Inhaler] Cetirizine HCl [Zyrtec] 10 mg PO QDAY 01/02/17 HYDROmorphone HCL [Dilaudid] 2 mg PO Q4 01/02/17 Montelukast Sodium [Singulair] 10 mg PO QDAY 01/02/17 Theophylline Anhydrous 300 mg PO BID 01/02/17 [Theophylline] Tiotropium [place] [Spiriva] 1 inh IH QD 01/02/17 Hydroxychloroquine Sulfate 200 mg PO D 01/25/17 - SOCIAL HX Smoking History: cigarettes - FAMILY HX Family History: No - VITAL SIGNS Vital Signs: Vital Signs Temp Pulse Resp BP Pulse Ox 97.5 F L 120 H 20 124/80 96 06/06/18 06:10 06/06/18 06:10 06/06/18 06:10 06/06/18 06:10 06/06/18 06:10 - REVIEWED ASSESSMENTS Nursing Assessment Reviewed: Yes Vitals Reviewed: Yes Progress - Progress Progress: IV placed in left upper arm with ultrasound. Very good blood flow. Flushed 20 cc NS - patient c/o pain; infiltration noted. IV dc'd. No other venous access options noted in left arm. Call to [facility]. - Additional EKG/XRAY/Consults Time Called: 07:30 Consult/PCP: [facility] Reason/Comments: Dr Altamirano - transfer for line placement and further evaluation of left arm ED Results Lab/Radiology - Orders Orders: ED Orders Category Date Time Status Lidocaine 1% 5ml(IM or SUTURE) [Xylocaine] Med 06/06/18 06:40 Discontinued 50 mg IJ NOW ONE General Adult Physical Exam - PHYSICAL EXAM GENERAL APPEARANCE: mild distress EENT: eye inspection normal RESPIRATORY: no resp distress, chest non-tender, breath sounds normal CVS: reg rate & rhythm, heart sounds normal, equal pulses, no murmur, no gallop, PMI nml, no JVD, no friction rub, 24 ABDOMEN: soft, no organomegaly, normal bowel sounds, no abdominal bruit, no distension BACK: normal inspection, no CVA tenderness SKIN: normal color, warm/dry, NR, INT, PAL, DR EXTREMITIES: other (right arm with edema and erythmea; painful to touch; c/o pain with extension and flexion; left lower arm with erythema. ) NEURO: oriented X3, CN's nml as tested, motor nml, sensation nml, mood/affect nml Discharge Clincal Impression: Cellulitis of right arm, no venous access Referrals: Primary Doctor,No [Primary Care Provider] - 2 Days Condition: Stable Disposition: 02 XFER [id number] HOSP Decision to Admit: NO Decision Time: 07:33
[2018-06-06 07:55] VITALS: BP 116/81
== END 2018-06-06 08:10 | disposition short-term general hospital (02) ==
LOC: ED 06:09
DX: L03.113 Cellulitis of right upper limb (principal)
CPT/HCPCS: 99283; 99284; S1016

== ENCOUNTER 2018-06-24 10:31 | Emergency (ER) | payer SELFPAY ==
[2018-06-24 10:59] VITALS: BP 126/81
--- NOTE | 2018-06-24 10:59 | ED Physician Documentation ---
General Adult - HPI Stated Complaint: medication refill Chief Complaint: General Adult Additional Information: Patient presents to ED with need of Albuterol medication refill. [place] from [place] of town and needs rescue inhaler. He is from [place]. He states he take Duoneb nebulizers every 4 hours, Prednisone 60mg daily, theophylline daily and has Albuterol MDI as rescue inhaler. He is not on PCP prophylactic antibiotic. Onset: days ago (2) Timing: still present Severity: mild - ROS CONST: no problems EYES/ENT: none CVS/RESP: none GI/: none MS/SKIN/LYMPH: none NEURO/PSYCH: denies: headache - PAST HX Past History: asthma, other (Lupus) Other History: none Surgeries/Procedures: none Allergies/Adverse Reactions: Allergies Allergy/AdvReac Type Severity Reaction Status Date / Time NSAIDS (Non-Steroidal Allergy Severe Anaphylaxis Verified 06/06/18 06:18 Anti-Inflamma acetaminophen [From Tylenol] Allergy Intermediate Hives Verified 06/06/18 06:18 vancomycin HCl Allergy Intermediate Hives Verified 06/06/18 06:18 [From Vancocin] Home Medications: Ambulatory Orders Medication Instructions Recorded Albuterol Sulfate [Ventolin HFN] 2.5 mg NEB Q4 12/28/16 Warfarin Sodium 5 mg PO DAILY 12/28/16 predniSONE [Deltasone] 80 mg PO QD 12/28/16 Alendronate Sodium [Fosamax] 70 mg PO WEEK 01/02/17 Budesonide/Formoterol Fumarate 1 inh PO QDAY 01/02/17 [Symbicort 160-4.5 Mcg Inhaler] Cetirizine HCl [Zyrtec] 10 mg PO QDAY 01/02/17 HYDROmorphone HCL [Dilaudid] 2 mg PO Q4 01/02/17 Montelukast Sodium [Singulair] 10 mg PO QDAY 01/02/17 Theophylline Anhydrous 300 mg PO BID 01/02/17 [Theophylline] Tiotropium [place] [Spiriva] 1 inh IH QD 01/02/17 Hydroxychloroquine Sulfate 200 mg PO D 01/25/17 Albuterol Sulfate [Proair HFA] 2 inh IH Q4 #1 [email or web address] 06/24/18 - SOCIAL HX Smoking History: non-smoker Alcohol Use: none Drug Use: none - FAMILY HX Family History: No - VITAL SIGNS Vital Signs: Vital Signs Temp Pulse Resp BP Pulse Ox 116/81 06/06/18 07:54 - REVIEWED ASSESSMENTS Nursing Assessment Reviewed: Yes Vitals Reviewed: Yes General Adult Physical Exam - PHYSICAL EXAM GENERAL APPEARANCE: no distress EENT: PRAFUL NECK: normal inspection RESPIRATORY: no resp distress CVS: reg rate & rhythm, heart sounds normal ABDOMEN: soft BACK: normal inspection SKIN: warm/dry EXTREMITIES: non-tender NEURO: oriented X3 Discharge Clincal Impression: Medication refill Prescriptions: Albuterol Sulfate [Proair HFA] 2 inh IH Q4 #1 [email or web address] Referrals: Primary Doctor,No [Primary Care Provider] - 2 Days Condition: Stable Disposition: 01 HOME, SELF-CARE Decision to Admit: NO Date of Decison to Admit: 06/24/18 Decision Time: 11:04
== END 2018-06-24 11:12 | disposition home or self-care (01) ==
LOC: ED 10:31
DX: Z76.0 Encounter for issue of repeat prescription (principal)
CPT/HCPCS: 99281